=== PATIENT | female | born 1995 | race Caucasian/White ===

== ENCOUNTER 2018-09-08 23:15 | Emergency (ER) | payer OTHER ==
[~2018-09-08] VITALS: Ht 175.3 cm; Wt 57.2 kg
[2018-09-08] MEDS ORDERED: LORAZEPAM 1 MG TAB ONE (23:33)
--- NOTE | 2018-09-09 00:02 | Diagnostic Imaging Report ---
EXAMINATION: CHEST 2 VIEWS INDICATION: ^CHEST/BACK PAIN ^[id number] ^[id number] COMPARISON: None FINDINGS: PA and lateral views TUBES and LINES: None. LUNGS and pleura: Right lung is well inflated. Collapsed left lung and the large left pneumothorax. No significant pleural effusion. HEART AND MEDIASTINUM: The cardiomediastinal silhouette is unremarkable. BONES AND SOFT TISSUES: No acute osseous lesion. Soft tissues are unremarkable. UPPER ABDOMEN: No free air under the diaphragm. IMPRESSION: Large left pneumothorax with mild mediastinal shift to the right, concerning for tension pneumothorax. Collapsed left lung. Findings discussed with Dr. Shepherd at 11:57 PM, on 09/08/2018. Signed by: Dr. Edison Lozano MD on 09/08/2018 11:58 PM
[2018-09-09] MEDS ORDERED: LIDOCAINE HCL 1% LOCAL INJ 20 ML VIAL ONE ×2 (00:10→00:35)
--- NOTE | 2018-09-09 00:10 | NUR ---
CONSENT FOR NEEDLE DECOMPRESSION AND INSERTION OF CHEST TUBE REVIEWED, ALL AGREED UPON, AND SIGNED BY PATIENT.
--- NOTE | 2018-09-09 00:13 | NUR ---
DR. CANTU AT PTS BEDSIDE, NEEDLE DECOMPRESSION PERFORMED TO PTS LEFT UPPER CHEST, PT TOLERATED PROCEDURE WELL
--- NOTE | 2018-09-09 00:28 | NUR ---
DR. CANTU AT PTS BEDSIDE FOR CHEST TUBE INSERTION
[2018-09-09] MEDS ORDERED: ONDANSETRON HCL INJ 2MG/ML 2ML 2 MG/ML VIAL IV STA (00:29)
[2018-09-09] MEDS ORDERED: LORAZEPAM 1 MG TAB PO PRN (00:30)
[2018-09-09] MEDS ORDERED: MORPHINE SULFATE INJ 4 MG/ML INJ 1ML IV PRN (00:30)
--- NOTE | 2018-09-09 00:30 | NUR ---
Transfer initiated to [facility]
[2018-09-09] MEDS ORDERED: MORPHINE SULFATE 2 MG/ML SYR 1ML ONE ×2 (00:35→01:01)
--- NOTE | 2018-09-09 00:42 | Diagnostic Imaging Report ---
EXAMINATION: CHEST SINGLE (PORTABLE) INDICATION: ^post needle decompression ^[id number] ^0022 COMPARISON: 09/08/2018 FINDINGS: AP view See impression. IMPRESSION: Slightly decreased, but persistent large left pneumothorax following needle decompression. Mildly improved expansion of the left lung and decreased mediastinal shift to the right. Signed by: Dr. Edison Lozano MD on 09/09/2018 12:38 AM
--- NOTE | 2018-09-09 00:58 | NUR ---
[facility] CALLED FOR TRANSPORT
[2018-09-09] MEDS ORDERED: MORPHINE SULFATE 2 MG/ML SYR 1ML IV STA (01:03)
[2018-09-09 01:04] LABS: BASOPHILS % 0.5 % (0.0-1.0); EOSINOPHILS # (AUTO) 0.1 (0.0-0.4); HEMATOCRIT 40.4 % (34.2-44.1); HEMOGLOBIN 13.2 g/dL (12.0-16.0); LYMPHOCYTES # (AUTO) 2.4 (1.0-3.2); LYMPHOCYTES % 38.9 % (18.0-39.1); MEAN CORPUSCULAR HEMOGLOBIN 28.1 pg (28-32); MEAN CORPUSCULAR HGB CONC 32.7 g/dL (31-35); MEAN CORPUSCULAR VOLUME 86.1 fL (81-99); MONOCYTES # (AUTO) 0.5 (0.2-0.8); NEUTROPHILS # (AUTO) 3.2 (2.1-6.9); NEUTROPHILS % 51.3 % (38.7-80.0); PLATELET COUNT 303 x10e3/uL (140-360); RED BLOOD COUNT 4.69 x10e6/uL (3.6-5.1); RED CELL DISTRIBUTION WIDTH 13.4 % (11.7-14.4)
[2018-09-09 01:18] LABS: ALANINE AMINOTRANSFERASE 14 IU/L (0-55); ALBUMIN 4.4 g/dL (3.5-5.0); ALBUMIN/GLOBULIN RATIO 1.3 (0.8-2.0); ALKALINE PHOSPHATASE 58 IU/L (40-150); ANION GAP 13.6 mmol/L (8-16); BLOOD UREA NITROGEN 7 mg/dL (7-26); BUN/CREATININE RATIO 9 (6-25); CALCIUM 9.7 mg/dL (8.4-10.2); CARBON DIOXIDE 25 mmol/L (22-29); CHLORIDE 104 mmol/L (98-107); CREATININE, SERUM 0.74 mg/dL (0.57-1.11); EST GLOMERULAR FILTRATION RATE > 60 ML/MIN (60-); GLUCOSE 121 mg/dL (74-118); POTASSIUM 3.6 mmol/L (3.5-5.1); SODIUM 139 mmol/L (136-145)
--- NOTE | 2018-09-09 01:25 | Diagnostic Imaging Report ---
EXAMINATION: CHEST SINGLE (PORTABLE) INDICATION: ^post chest tube insertion COMPARISON: Same day at 0022 hours FINDINGS: AP view TUBES and LINES: Interval left chest tube placement with tip projecting left apex. LUNGS: Lungs are well inflated. Minimal midlung linear atelectasis/scarring. There is no evidence of pneumonia or pulmonary edema. PLEURA: No pleural effusion or pneumothorax. HEART AND MEDIASTINUM: The cardiomediastinal silhouette is unremarkable. BONES AND SOFT TISSUES: No acute osseous lesion. Mild scoliosis. Soft tissues are unremarkable. UPPER ABDOMEN: No free air under the diaphragm. IMPRESSION: Interval chest tube placement with reexpansion of the left lung and resolution of the previously seen large left pneumothorax. Signed by: Dr. Edison Lozano MD on 09/09/2018 1:22 AM
[2018-09-09] MEDS ORDERED: FENTANYL CITRATE/PF 100MCG/2 ML INJ ONE (01:38)
[2018-09-09] MEDS ORDERED: FENTANYL CITRATE/PF 100MCG/2 ML INJ IV ONE (01:45)
--- NOTE | 2018-09-09 01:56 | Diagnostic Imaging Report ---
EXAMINATION: CHEST SINGLE (PORTABLE) INDICATION: ^post chest tube COMPARISON: Same day x-ray FINDINGS: See impression. IMPRESSION: Interval retraction of left chest tube with tip now projecting over the left midlung. No visible pneumothorax. Signed by: Dr. Edison Lozano MD on 09/09/2018 1:53 AM
== END 2018-09-09 02:02 | disposition other institution (70) ==
LOC: ER 23:15
DX: R06.00 Dyspnea, unspecified (principal); J93.83 Other pneumothorax
CPT/HCPCS: 32551; 36415; 71045; 71046; 80053; 85025; 93005; 96374; 99284; J2001; J2270; J2405; J3010

== ENCOUNTER 2019-11-13 19:02 | Inpatient (IN) | payer OTHER ==
[~2019-11-13] VITALS: Ht 175.3 cm; Wt 58.2 kg
--- NOTE | 2019-11-13 19:09 | Emergency Department Note ---
History of Present Illnes History of Present Illness Chief Complaint: Chest Pain History of Present Illness This is a 23 year old female presents with CP since 0200. H/O tension PTX . Historian: Patient Onset (how long ago): hour(s) (18) Radiation: Reports non-radiation Severity: moderate Duration (how long): hour(s) Timing of current episode: constant Progression: worsening Chronicity: new Context: Denies recent illness, Denies recent surgery, Denies recent immobilization, Denies recent travel, Denies trauma/injury, Denies new medications, Denies hx of DVT/PE, Denies non-compliance w/ medications, Denies other Relieving factors: none Exacerbating factors: none Associated symptoms: Reports chest pain, Reports shortness of breath Treatments prior to arrival: none Past Medical/Family History Physician Review I have reviewed the patient's past medical and family history. Any updates have been documented here. Past Medical History Other Surgery: LEFT ACL REPAIR Other Last Tetanus: UTD Physical Exam Related Data Allergies: Coded Allergies: No Known Allergies (Unverified , 11/13/19) Triage Vital Signs Vital Signs Date Time Temp Pulse Resp B/P (MAP) Pulse Ox O2 Delivery O2 Flow Rate FiO2 11/13/19 19:05 98.3 79 18 136/104 99 Room Air Vital signs reviewed: Yes Physical Exam CONSTITUTIONAL Constitutional: Present well-developed, Present well-nourished HENT HENT: Present normocephalic, Present atraumatic, Present oropharynx clear/moist, Present nose normal HENT L/R: Present left ext ear normal, Present right ext ear normal EYES Eyes: Reports PERRL, Reports conjunctivae normal NECK Neck: Present ROM normal PULMONARY Pulmonary: Present effort normal, Present other (absent BS left side) CARDIOVASCULAR Cardiovascular: Present regular rhythm, Present heart sounds normal, Present capillary refill normal, Present normal rate GASTROINTESTINAL Abdominal: Present soft, Present nontender, Present bowel sounds normal GENITOURINARY Genitourinary: Present exam deferred SKIN Skin: Present warm, Present dry MUSCULOSKELETAL Musculoskeletal: Present ROM normal NEUROLOGICAL Neurological: Present alert, Present oriented x 3, Present no gross motor or sensory deficits PSYCHOLOGICAL Psychological: Present mood/affect normal, Present judgement normal Results Imaging Imaging results reviewed: Yes Impressions [place] [address] Patient Name: GORDO SERRANO MR #: [id number] : 1995 Age/Sex: 23/F Req #: [id number] Adm Physician: Ordered by: DANA MORALES DO Report #: [id number] Location: ER Room/Bed: Procedure: [id number] DX/CHEST 2 VIEWS Exam Date: Exam Time: REPORT STATUS: Signed EXAMINATION: CHEST 2 VIEWS INDICATION: ^CP COMPARISON: 09/09/2018 FINDINGS: PA and lateral views TUBES and LINES: None. LUNGS: Lungs are well inflated. There is no evidence of pneumonia or pulmonary edema. PLEURA: No pleural effusions. Large left pneumothorax with maximum air gap of 4.9 cm. HEART AND MEDIASTINUM: The cardiomediastinal silhouette is unremarkable. BONES AND SOFT TISSUES: No acute osseous lesion. Soft tissues are unremarkable. UPPER ABDOMEN: No free air under the diaphragm. IMPRESSION: Large left pneumothorax. Tension component cannot be excluded. Findings discussed with Dr. Morales at 8:30 PM, 11/13/2019. Signed by: Dr. Edison Gill MD on 11/13/2019 8:30 PM Dictated By: EDISON GILL MD 29 Transcribed By: [place] on 11/13/192029 COPY TO: DANA MORALES DO~ Procedures 12 Lead ECG Interpretation ECG Interpretation : ECG: ECG 1 Laminator Hand: Interpreted by ED physician Date: Nov 13, 2019 Time: 19:18 Prior ECG tracings: reviewed Rhythm: sinus rhythm Rate: normal BPM: 73 QRS axis: normal ST segments normal: Yes T waves normal: Yes Clinical Impression: abnormal ECG Critical Care Time Total Critical Care Time (min): 31 Critcal care necessary due to: respiratory failure Critcal care time spent by me: discussion w consultants, interpret cardiac output measures, examination of patient, obtaining hx from patient/surrogate, order/perform tx or interventions, order/review laboratory studies, order/review radiographic studies, pulse oximetry, re-evaluation of patient condition, review of old charts Comments Dr Yusuf Wells consulted at 2019. Assessment & Plan Medical Decision Making MDM Diff dx : pneumothorax, acs, pneumonia, costochondritis Reassessment Reassessment time: 22:04 Reassessment Patient hemodynamically stable with VSS. no respiratory distress. Patient 100% oxygen saturation on RA. Assessment & Plan Final Impression: (1) Pneumothorax on left Depart Disposition: ADMITTED DANA MORALES DO Nov 13, 2019 19:09
[2019-11-13 19:47] LABS: BASOPHILS % 0.5 % (0.0-1.0); EOSINOPHILS % 0.5 % (0.0-6.0); HEMOGLOBIN 13.1 g/dL (12.0-16.0); LYMPHOCYTES # (AUTO) 1.7 (1.0-3.2); LYMPHOCYTES % 30.5 % (18.0-39.1); MEAN CORPUSCULAR HEMOGLOBIN 29.6 pg (28-32); MEAN CORPUSCULAR HGB CONC 32.8 g/dL (31-35); MEAN CORPUSCULAR VOLUME 90.5 fL (81-99); MONOCYTES # (AUTO) 0.4 (0.2-0.8); MONOCYTES % 7.2 % (4.4-11.3); NEUTROPHILS # (AUTO) 3.5 (2.1-6.9); NEUTROPHILS % 60.9 % (38.7-80.0); PLATELET COUNT 284 x10e3/uL (140-360); RED BLOOD COUNT 4.42 x10e6/uL (3.6-5.1); RED CELL DISTRIBUTION WIDTH 11.8 % (11.7-14.4)
[2019-11-13 20:08] LABS: CREATINE KINASE MB 0.5 ng/mL (0-5.0)
--- NOTE | 2019-11-13 20:33 | Diagnostic Imaging Report ---
EXAMINATION: CHEST 2 VIEWS INDICATION: ^CP COMPARISON: 09/09/2018 FINDINGS: PA and lateral views TUBES and LINES: None. LUNGS: Lungs are well inflated. There is no evidence of pneumonia or pulmonary edema. PLEURA: No pleural effusions. Large left pneumothorax with maximum air gap of 4.9 cm. HEART AND MEDIASTINUM: The cardiomediastinal silhouette is unremarkable. BONES AND SOFT TISSUES: No acute osseous lesion. Soft tissues are unremarkable. UPPER ABDOMEN: No free air under the diaphragm. IMPRESSION: Large left pneumothorax. Tension component cannot be excluded. Findings discussed with Dr. Morales at 8:30 PM, 11/13/2019. Signed by: Dr. Edison Lozano MD on 11/13/2019 8:30 PM
[2019-11-13] MEDS ORDERED: LIDOCAINE HCL 1% LOCAL INJ 20 ML VIAL INJ ONE (20:45)
[2019-11-13] MEDS ORDERED: LORAZEPAM INJ 2 MG/ML VIAL IV ONE (20:45)
--- NOTE | 2019-11-13 20:47 | NUR ---
DR. Luke BALDWIN AT PT'S BEDSIDE TO ASSESS PT.
[2019-11-13 21:10] LABS: AMPHETAMINES SCREEN,URINE NEGATIVE (NEGATIVE); BENZODIAZEPINES SCREEN,URINE NEGATIVE (NEGATIVE); PHENCYCLIDINE SCREEN,URINE NEGATIVE (NEGATIVE); PREGNANCY TEST, URINE NEGATIVE (NEGATIVE)
--- NOTE | 2019-11-13 22:04 | NUR ---
PT SITTING UP IN STRETCHER TALKING TO SISTER AT THIS TIME. PT DENIES ANY COMPLAINTS. WILL CONTINUE TO MONITOR.
--- NOTE | 2019-11-13 22:13 | Diagnostic Imaging Report ---
EXAM: CT Chest WITHOUT contrast INDICATION: ^Large PTX ^[id number] ^2099 COMPARISON: Same day chest radiograph. TECHNIQUE: Chest was scanned utilizing a multidetector helical scanner from the lung apex through the level of the adrenal glands without administration of IV contrast. Absence of intravenous contrast decreases sensitivity for detection of lymphadenopathy and vascular pathology. Coronal and sagittal reformations were obtained. Routine protocol was performed. IV CONTRAST: None COMPLICATIONS: None RADIATION DOSE: Total DLP: 381.20 mGy*cm Estimated effective dose: (DLP x 0.014 x size factor) mSv CTDIvol has been reviewed. It is below the limits set by the Radiation Protocol Committee (RPC). FINDINGS: LINES/ TUBES: None. LUNGS, PLEURA, AND AIRWAYS: Evidence of left upper lobe surgery with suture line in place. Partially collapsed left lung along with large left pneumothorax. Airways are normal. No pleural effusion. Mild right upper lobe subpleural bullous changes. Otherwise, right lung is unremarkable. HEART AND MEDIASTINUM: The thyroid gland is normal. No mediastinal, hilar or axillary lymphadenopathy. The heart is normal in size.. There is no pericardial effusion. UPPER ABDOMEN: 4 mm right renal superior pole calculus versus milk of calcium. BONES: The visualized bony thorax is within normal limits. SOFT TISSUES: Unremarkable. IMPRESSION: Persistent large left pneumothorax. Tension component is suspected. Evidence of prior left upper lobe surgery. Signed by: Dr. Edison Lozano MD on 11/13/2019 10:09 PM
--- NOTE | 2019-11-13 22:20 | NUR ---
INFORMED CONSENT OBTAINED. DR. Luke BALDWIN AT BEDSIDE TO DISCUSS PROCEDURE. PT HAS NO FURTHER QUESTIONS AT THIS TIME.
--- NOTE | 2019-11-13 22:26 | Consultation ---
DATE OF CONSULTATION: Pulmonary Critical Care Consultation CHIEF COMPLAINT: Chest discomfort and recurrent pneumothorax. HISTORY OF PRESENT ILLNESS: The patient is a 23-year-old woman. Approximately a year ago, she had a spontaneous pneumothorax on the left side. She came to the ER and had a chest tube, but the lung did not re-expand. She was transferred to [facility] and had a 2nd chest tube followed by a video-assisted thoracoscopy. She remained in the hospital for about 2 weeks. She subsequently went home and had no further problems until yesterday in the in store representative hours. Around 2:00 a.m., last night, she developed some pain in her chest and back that was worse with inspiration as well as some tachypnea. She did not complain of any cough. She has no fevers. PAST SURGICAL HISTORY: 1. Status post video-assisted thoracoscopy as noted above. 2. Status post removal of the cyst in her neck. PAST MEDICAL HISTORY: 1. Scoliosis, mild. 2. Spontaneous pneumothorax as noted above. SOCIAL HISTORY: The patient is not a smoker. She does not use any illicit drugs. She is not a drinker. FAMILY HISTORY: Noncontributory. REVIEW OF SYSTEMS: The patient has no fever. She has no headache. She has no neck pain. She is complaining of pain in her chest with inspiration as well as some pain in her back. She has no abdominal pain. There is no nausea or vomiting. She has no leg edema. PHYSICAL EXAMINATION: VITAL SIGNS: The patient is afebrile. The blood pressure is 132/92 and pulse is 80. The respiratory rate is 20. Saturation is 99% on room air. HEENT: Shows no facial swelling or erythema. LYMPHATIC: Shows no submandibular, cervical, or supraclavicular adenopathy. BACK: Does show some mild scoliosis. There are scars from a prior video-assisted thoracoscopy on the left side. CARDIAC: Reveals a regular rate and rhythm with normal S1, S2. LUNGS: Auscultation of lungs reveals decreased breath sounds on the left side. ABDOMEN: Soft and nontender. There is no rebound or guarding. There is no leg edema or calf tenderness. There is no cyanosis or clubbing. SKIN: Shows no rashes. NEUROLOGICAL: Shows no focal abnormalities. LABORATORY DATA: White blood cell count is 5.68, the hemoglobin is 15.1, and the platelet count is 284. RADIOGRAPHIC DATA: Chest x-ray shows a left pneumothorax that is most prominent at the base and at the apex. There is some mild scoliosis. IMPRESSION: 1. Recurrent left pneumothorax following a video-assisted thoracoscopy. 2. Mild scoliosis. PLAN: 1. CT scan of chest to determine if there are any loculations and a pneumothorax. 2. Depending on the CT scan results, the patient may need pigtail catheters placed. Alternatively, she may require video-assisted thoracoscopy. Yusuf Keller MD [facility] /[id number]
--- NOTE | 2019-11-13 22:38 | NUR ---
DR. Luke BALDWIN AT PT'S BEDSIDE FOR CHEST TUBE INSERTION. CHEST TUBE INSERTED IN LT UPPER CHEST. PT TOLERATED PROCEDURE WELL. NAD NOTED AT THIS TIME. WILL CONTINUE TO MONITOR.
--- NOTE | 2019-11-13 22:50 | NUR ---
2230 - TIME OUT PERFORMED PRIOR TO START OF PROCEDURE. EDINSON BECKFORD, RN AND THIS RN AT BEDSIDE. 2235 - START TIME FOR CHEST TUBE INSERTION. 2249 - STOP TIME FOR PROCEDURE. PT TOLERATED WELL.
--- NOTE | 2019-11-13 22:54 | NUR ---
TOOL SHARPENER AT BEDSIDE FOR STAT POST CHEST TUBE INSERTION.
[2019-11-13] MEDS ORDERED: SODIUM CHLORIDE 0.9% 1000ML 1,000 ML IV SCH (23:00)
[2019-11-13] MEDS ORDERED: ZOLPIDEM TARTRATE 5 MG TAB PO PRN (23:15)
--- NOTE | 2019-11-13 23:25 | Diagnostic Imaging Report ---
EXAMINATION: CHEST SINGLE (PORTABLE) INDICATION: ^CHEST TUBE INSERTION ^[id number] ^9572 COMPARISON: Same day chest CT and x-ray FINDINGS: AP view TUBES and LINES: Interval placement of left pleural tube. LUNGS: Lungs are well inflated. There is no evidence of pneumonia or pulmonary edema. PLEURA: No pleural effusion. Minimal left apical pneumothorax with air gap of approximately 5 mm. HEART AND MEDIASTINUM: The cardiomediastinal silhouette is unremarkable. BONES AND SOFT TISSUES: No acute osseous lesion. Soft tissues are unremarkable. UPPER ABDOMEN: No free air under the diaphragm. IMPRESSION: Reexpansion of the left lung following left chest tube placement. Minimal residual left apical pneumothorax. Signed by: Dr. Edison Lozano MD on 11/13/2019 11:21 PM
[2019-11-14] VITALS (8 sets, daily range): BP systolic 111–123; BP diastolic 76–94
--- NOTE | 2019-11-14 00:30 | NUR ---
PT ARRIVED BY STRETCHER TO ROOM 113. PT IS AAOX3, RR EVEN AND NON-LABORED, ON ROOM AIR. CHEST TUBE TO (L) LATERAL CHEST CONNECTED TO SUCTION 20. ORIENTED PT TO HOSPITAL ROOM, HOSPITAL POLICY, CALL LIGHT, PHONE, LIGHTS AND BED CONTROLS. LEFT PT LAYING SEMI FOWLERS IN BED, BED IN LOW LOCKED POSITION, SIDE RAILS UPX2, CALL LIGHT AND PHONE WITHIN REACH.
--- NOTE | 2019-11-14 02:32 | Operative Report ---
DATE OF PROCEDURE: SURGEON: Yusuf Keller MD PROCEDURE: Chest tube placement. PREOPERATIVE DIAGNOSIS: Left pneumothorax. POSTOPERATIVE DIAGNOSIS: Left pneumothorax. CONSENT: Consent was obtained from the patient. MEDICATIONS: 1% lidocaine for local anesthesia. DESCRIPTION OF PROCEDURE: The patient was placed in a supine position. The mid axillary line was prepped sterilely with chlorhexidine at the 6th intercostal space. Sterile gowns, sterile drapes, mask, and sterile cloths were used. 1% lidocaine was used to anesthetize the area over the 6th intercostal space. A 0.5 cm incision was made with a #11 blade. Lidocaine was then used to anesthetize the subcutaneous tissue as well as the area superior to the rib. An 18-gauge needle was used to enter the pleural space. An 18-gauge needle was advanced through the parietal pleura into the pleural space. A 20-Sinhala catheter was then advanced over the needle by the Seldinger technique. The tube was connected to a Pleur-evac with -20 mL of suction. There was notable air leak and respiratory variation. COMPLICATIONS: None. ESTIMATED BLOOD LOSS: None. Yusuf Keller MD [facility] /[id number]
[2019-11-14] MEDS ORDERED: MULTIVITAMINS1 EAC7 PO (04:15)
[2019-11-14] MEDS ORDERED: LARIN 24 FE 11 EACH PO (04:15)
[2019-11-14 06:58] LABS: BASOPHILS % 0.7 % (0.0-1.0); EOSINOPHILS # (AUTO) 0.1 (0.0-0.4); EOSINOPHILS % 1.3 % (0.0-6.0); HEMATOCRIT 37.8 % (34.2-44.1); HEMOGLOBIN 12.5 g/dL (12.0-16.0); LYMPHOCYTES # (AUTO) 1.7 (1.0-3.2); MEAN CORPUSCULAR HEMOGLOBIN 29.5 pg (28-32); MEAN CORPUSCULAR HGB CONC 33.1 g/dL (31-35); MEAN CORPUSCULAR VOLUME 89.2 fL (81-99); MONOCYTES # (AUTO) 0.4 (0.2-0.8); MONOCYTES % 9.3 % (4.4-11.3); NEUTROPHILS # (AUTO) 2.4 (2.1-6.9); NEUTROPHILS % 52.5 % (38.7-80.0); PLATELET COUNT 236 x10e3/uL (140-360); RED BLOOD COUNT 4.24 x10e6/uL (3.6-5.1); RED CELL DISTRIBUTION WIDTH 11.9 % (11.7-14.4)
[2019-11-14 07:02] LABS: ALANINE AMINOTRANSFERASE 10 IU/L (0-55); ALBUMIN 3.9 g/dL (3.5-5.0); ALBUMIN/GLOBULIN RATIO 1.8 (0.8-2.0); ALKALINE PHOSPHATASE 35 IU/L (40-150); ANION GAP 10.1 mmol/L (8-16); BLOOD UREA NITROGEN 9 mg/dL (7-26); BUN/CREATININE RATIO 12 (6-25); CALCIUM 8.7 mg/dL (8.4-10.2); CARBON DIOXIDE 24 mmol/L (22-29); CHLORIDE 110 mmol/L (98-107); CREATININE, SERUM 0.75 mg/dL (0.57-1.11); EST GLOMERULAR FILTRATION RATE > 60 ML/MIN (60-); GLUCOSE 91 mg/dL (74-118); POTASSIUM 4.1 mmol/L (3.5-5.1); SODIUM 140 mmol/L (136-145)
[2019-11-14] MEDS: MORPHINE SULFATE INJ 4 MG/ML INJ 1ML IV PRN (07:04)
[2019-11-14] MEDS: ONDANSETRON HCL INJ 2MG/ML 2ML 2 MG/ML VIAL IV PRN ×2 (07:05→20:21)
--- NOTE | 2019-11-14 07:41 | Diagnostic Imaging Report ---
EXAMINATION: CHEST 2 VIEWS INDICATION: Pneumothorax. COMPARISON: Chest CT and chest radiograph 11-13-2019. FINDINGS: AP view TUBES and LINES: Interval placement of left pleural tube. LUNGS: Lungs are well inflated. There is no evidence of pneumonia or pulmonary edema. PLEURA: No pleural effusion. Unchanged trace left apical pneumothorax. HEART AND MEDIASTINUM: The cardiomediastinal silhouette is unremarkable. BONES AND SOFT TISSUES: No acute osseous abnormality. Trace left chest wall subcutaneous emphysema. UPPER ABDOMEN: No free air under the diaphragm. IMPRESSION: Unchanged trace left apical pneumothorax with left-sided chest tube in place. Signed by: Dr. Cabrera Mackay MD on 11/14/2019 7:38 AM
--- NOTE | 2019-11-14 09:10 | NUR ---
chest tube placed to water seal as ordered, xray ordered for 1500 today, will continue ot monitor
[2019-11-14] MEDS: HYDROCODONE/APAP 5MG-325MG TAB PO PRN ×2 (12:41→19:15)
--- NOTE | 2019-11-14 12:50 | NUR ---
pt complain of pain on L back, neck, and chest area, notified Dr. Keller orders for xray.
--- NOTE | 2019-11-14 13:30 | NUR ---
down to xray
--- NOTE | 2019-11-14 13:40 | NUR ---
back to rm, voices no co, will continue ot monitor
--- NOTE | 2019-11-14 14:00 | NUR ---
spoke with radiologist Dr. Mackay re: xray results will notify Dr. Keller.
--- NOTE | 2019-11-14 14:02 | Diagnostic Imaging Report ---
EXAMINATION: CHEST 2 VIEWS INDICATION: Pneumothorax. COMPARISON: Chest radiograph 11-14-2019. FINDINGS: AP view TUBES and LINES: Left-sided chest tube in unchanged position. LUNGS: Lungs are well inflated. There is no evidence of pneumonia or pulmonary edema. PLEURA: No pleural effusion. Interval increase in size of small left sided pneumothorax, measuring up to 3 cm. HEART AND MEDIASTINUM: The cardiomediastinal silhouette is unremarkable. BONES AND SOFT TISSUES: No acute osseous abnormality. UPPER ABDOMEN: No free air under the diaphragm. IMPRESSION: Interval increase in size of small left sided pneumothorax, measuring up to 3 cm. The above findings were discussed with NIMA Bailey who indicated the communication was understood on 11/14/2019 at 158PM. Signed by: Dr. Cabrera Mackay MD on 11/14/2019 1:59 PM
--- NOTE | 2019-11-14 14:15 | NUR ---
spoke with Dr. Keller, pt reconnected to wall suction.
--- NOTE | 2019-11-14 15:44 | Progress Note ---
DATE: SUBJECTIVE: The patient's lung was re-expanded this morning on chest x-ray. Her chest tube was placed to water-seal. Several hours later, she developed some pain in her back. Repeat chest x-ray showed recurrent collapse of the left lung and chest tube was hooked up to suction again. PHYSICAL EXAMINATION: VITAL SIGNS: The patient is afebrile. The blood pressure is 113/76, saturation is 100%. The pulse is 74. Respiratory rate is 18. HEENT: Shows no facial swelling or erythema. LYMPHATIC: Shows no submandibular, cervical or supraclavicular adenopathy. CARDIAC: Reveals regular rate and rhythm with normal S1, S2. LUNGS: Auscultation of lungs reveals rhonchorous breath sounds bilaterally. There is no wheezing. ABDOMEN: Soft, nontender. There is no rebound or guarding. EXTREMITIES: Shows no leg edema or calf tenderness. There is no cyanosis or clubbing. SKIN: Shows no rashes. NEUROLOGICAL: Shows no focal abnormalities. LABORATORY DATA: CBC is within normal limits. CMP is within normal limits. IMPRESSION: 1. Recurrent spontaneous pneumothorax. 2. Small apical bleb in the right lung on CT scan. 3. Mild scoliosis. PLAN: 1. Continue chest tube to suction. 2. Repeat chest x-ray later this evening and again tomorrow. 3. Consult Thoracic Surgery. 4. Pain control as needed. Yusuf Keller MD [facility] /[id number]
--- OUTSIDE RECORDS SUMMARY | 2019-11-14 16:45 | XMS REPORT | Continuity of Care Document ---
Author Author [facility] t Organization [facility] Address [address] [place] [address] Phone Unavailable Care Team Providers Care Nut Cracker Name Role Phone AR GALLEGO PCP Gabby IVEY Attphys Unavailable George Shepard MD Attphys FRANCISCA ESCOBAR Attphys Unavailable LEANN, S AMBICA Attphys Unavailable Gabby IVEY Admphys Unavailable FRANCISCA ESCOBAR Admphys Unavailable Payers Payer Name Policy Type Policy Number Effective Date Expiration Date Carter Zepeda [facility] [id number] 2010 00:00:00 [facility] Problems Condition Name Condition Details Condition Category Status Onset Date Resolution Date Last Treatment Date Treating Clinician Comments Source 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 Active 2018-09-09 00:00:00 [facility] Spontaneous pneumothorax s/p L VATS FESTUS wedge resection, mechanical pleurodesis 09/14/2018 (Devyn) Spontaneous pneumothorax s/p L VATS FESTUS wedge resection, mechanical pleurodesis 09/14/2018 (Devyn) Disease Active [facility] Allergies, Adverse Reactions, Alerts Allergy Name Allergy Type Status Severity Reaction(s) Onset Date Inacti ve Date Treating Clinician Comments Source Sulfamethoxazole-Trimethoprim Propensity to adverse reactions Active Swelling 2018-02-03 00:00:00 [facility] Social History Social Habit Start Date Stop Date Quantity Comments Source History SDOH Alcohol Binge [facility] Sex Assigned At [facility] History SDOH Alcohol Frequency 2018-09-09 00:00:00 2018-09-09 00:00:0 0 3 [facility] History SDOH Alcohol Std Drinks 2018-09-09 00:00:00 2018-09-09 00:00: 00 1 [facility] Smoking Status Start Date Stop Date Source Never smoker [facility] Medications Ordered Medication Name Filled Medication Name Start Date Stop Da te Current Medication? Ordering Clinician Indication Dosage Frequency Signature (SIG) Comments Components Source gabapentin (NEURONTIN) 100 MG capsule 2018-09-17 00:00 :00 2018-12-16 23:59:00 No 100mg [id number] Take 1 capsule (100 mg total) by mouth 3 (three) times daily for 90 days. [facility] Procedures Procedure Date / Time Performed Performing Clinician [facility] e X-ray of chest, two views 2018-09-08 00:00:00 JAYE NORIEGA [facility] Encounters Start Date/Time End Date/Time Encounter Type Admission Type Attendi [facility] Care Department Encounter ID Source 2018-09-29 09:34:10 2018-09-29 09:49:10 Office Visit George Yañez [facility] [id number] 2018-09-08 23:15:00 2018-09-09 02:02:00 Departed Emergency Room 1 LEANNJAYE VENEGAS [facility] [id number] [facility] Results Test Description Test Time Test Comments Results Result Comments Source CHEST 2 VIEWS 2019-11-14 13:54:00 [address], [place], [place] [address] Patient Name: GORDO SERRANO MR #: [id number] : 1995 Age/Sex: 23/F Req #: [id number] Adm Physician: CARLENE IVEY MD Ordered by: ELIJAH BALDWIN MD Report #: [id number] Location: MED/SURG Room/Bed: [facility] Procedure: [id number] DX/CHEST 2 VIEWS Exam Date: Exam Time: REPORT STATUS: Signed EXAMINATION: CHEST 2 VIEWS INDICATION: Pneumothorax. COMPARISON: Chest radiograph 11-14-2019. FINDINGS: AP view TUBES and LINES: Left-sided chest tube in unchanged position. LUNGS: Lungs are well inflated. There is no evidence of pneumonia or pulmonary edema. PLEURA: No pleural effusion. Interval increase in size of small left sided pneumothorax, measuring up to 3 cm. HEART AND MEDIASTINUM: The cardiomediastinal silhouette is unremarkable. BONES AND SOFT TISSUES: No acute osseous abnormality. UPPER ABDOMEN: No free air under the diaphragm. IMPRESSION: Interval increase in size of small left sided pneumothorax, measuring up to 3 cm. The above findings were discussed with NIMA Bailey who indicated the communication was understood on 11/14/2019 at 158PM. Signed by: Dr. Roge Luna MD on 11/14/2019 1:59 PM Dictated By: ROGE LUNA MD [id number] Transcribed By: ALEXANDRIA on 11/14/19 8130 COPY TO: ELIJAH BALDWIN MD CHEST 2 VIEWS 2019-11-14 07:36:00 [place] [address] Patient Name: GORDO SERRANO MR #: [id number] : 1995 Age/Sex: 23/F Req #: [id number] Adm Physician: CARLENE IVEY MD Ordered by: ELIJAH BALDWIN MD Report #: [id number] Location: MED/SURG Room/Bed: [facility] Procedure: [id number] DX/CHEST 2 VIEWS Exam Date: 11/14/19 Exam Time: 0645 REPORT STATUS: Signed EXAMINATION: CHEST 2 VIEWS INDICATION: Pneumothorax. COMPARISON: Chest CT and chest radiograph 11-13-2019. FINDINGS: AP view TUBES and LINES: Interval placement of left pleural tube. LUNGS: Lungs are well inflated. There is no evidence of pneumonia or pulmonary edema. PLEURA: No pleural effusion. Unchanged trace left apical pneumothorax. HEART AND MEDIASTINUM: The cardiomediastinal silhouette is unremarkable. BONES AND SOFT TISSUES: No acute osseous abnormality. Trace left chest wall subcutaneous emphysema. UPPER ABDOMEN: No free air under the diaphragm. IMPRESSION: Unchanged trace left apical pneumothorax with left-sided chest tube in place. Signed by: Dr. Roge Luna MD on 11/14/2019 7:38 AM Dictated By: ROGE LUNA MD 7 Transcribed By: ALEXANDRIA on 11/14/19737 COPY TO: ELIJAH BALDWIN MD CHEST SINGLE (PORTABLE) 2019-11-13 23:16:00 [place] [address] Patient Name: GORDO SERRANO MR #: [id number] : 1995 Age/Sex: 23/F Req #: [id number] Adm Physician: Ordered by: ELIJAH BALDWIN MD Report #: [id number] Location: ER Room/Bed: Procedure: [id number] DX/CHEST SINGLE (PORTABLE) Exam Date: 11/13/19 Exam Time: 2254 REPORT STATUS: Signed EXAMINATION: CHEST SINGLE (PORTABLE) INDICATION: CHEST TUBE INSERTION [id number] COMPARISON: Same day chest CT and x-ray FINDINGS: AP view TUBES and LINES: Interval placement of left pleural tube. LUNGS: Lungs are well inflated. There is no evidence of pneumonia or pulmonary edema. PLEURA: No pleural effusion. Minimal left apical pneumothorax with air gap of approximately 5 mm. HEART AND MEDIASTINUM: The cardiomediastinal silhouette is unremarkable. BONES AND SOFT TISSUES: No acute osseous lesion. Soft tissues are unremarkable. UPPER ABDOMEN: No free air under the diaphragm. IMPRESSION: Reexpansion of the left lung following left chest tube placement. Minimal residual left apical pneumothorax. Signed by: Dr. Edison Gill MD on 11/13/2019 11:21 PM Dictated By: EDISON GILL MD 20 Transcribed By: ALEXANDRIA on 11/13/192320 COPY TO: ELIJAH BALDWIN MD CT CHEST WO 2019-11-13 21:45:00 [place] [address] Patient Name: GORDO SERRANO MR #: [id number] : 1995 Age/Sex: 23/F Req #: [id number] Adm Physician: Ordered by: DANA GAMBOA DO Report #: [id number] Location: ER Room/Bed: Procedure: [id number] CT/CT CHEST WO Exam Date: 11/13/19 Exam Time: 2099 REPORT STATUS: Signed EXAM: CT Chest WITHOUT contrast INDICATION: Large PTX [id number] COMPARISON: Same day chest radiograph. TECHNIQUE: Chest was scanned utilizing a multidetector helical scanner from the lung apex through the level of the adrenal glands without administration of IV contrast. Absence of intravenous contrast decreases sensitivity for detection of lymphadenopathy and vascular pathology. Coronal and sagittal reformations were obtained. Routine protocol was performed. IV CONTRAST: None COMPLICATIONS: None RADIATION DOSE: Total DLP: 381.20 mGy*cm Estimated effective dose: (DLP x 0.014 x size factor) mSv CTDIvol has been reviewed. It is below the limits set by the Radiation Protocol Committee (RPC). FINDINGS: LINES/ TUBES: None. LUNGS, PLEURA, AND AIRWAYS: Evidence of left upper lobe surgery with suture line in place. Partially collapsed left lung along with large left pneumothorax. Airways are normal. No pleural effusion. Mild right upper lobe subpleural bullous changes. Otherwise, right lung is unremarkable. HEART AND MEDIASTINUM: The thyroid gland is normal. No mediastinal, hilar or axillary lymphadenopathy. The heart is normal in size.. There is no pericardial effusion. UPPER ABDOMEN: 4 mm right renal superior pole calculus versus milk of calcium. BONES: The visualized bony thorax is within normal limits. SOFT TISSUES: Unremarkable. IMPRESSION: Persistent large left pneumothorax. Tension component is suspected. Evidence of prior left upper lobe surgery. Signed by: Dr. Edison Gill MD on 11/13/2019 10:09 PM Dictated By: EDISON GILL MD 08 Transcribed By: ALEXANDRIA on 11/13/192208 COPY TO: DANA GAMBOA DO CHEST 2 VIEWS 2019-11-13 20:25:00 [place] [address] Patient Name: OGRDO SERRANO MR #: [id number] : 1995 Age/Sex: 23/F Req #: [id number] Adm Physician: Ordered by: DNAA GAMBOA DO Report #: [id number] Location: ER Room/Bed: Procedure: [id number] DX/CHEST 2 VIEWS Exam Date: Exam Time: REPORT STATUS: Signed EXAMINATION: CHEST 2 VIEWS INDICATION: CP COMPARISON: 09/09/2018 FINDINGS: PA and lateral views TUBES and LINES: None. LUNGS: Lungs are well inflated. There is no evidence of pneumonia or pulmonary edema. PLEURA: No pleural effusions. Large left pneumothorax with maximum air gap of 4.9 cm. HEART AND MEDIASTINUM: The cardiomediastinal silhouette is unremarkable. BONES AND SOFT TISSUES: No acute osseous lesion. Soft tissues are unremarkable. UPPER ABDOMEN: No free air under the diaphragm. IMPRESSION: Large left pneumothorax. Tension component cannot be excluded. Findings discussed with Dr. Gamboa at 8:30 PM, 11/13/2019. Signed by: Dr. Edison Gill MD on 11/13/2019 8:30 PM Dictated By: EDISON GILL MD 29 Transcribed By: ALEXANDRIA on 11/13/192029 COPY TO: DANA GAMBOA DO TISSUE EXAM 2018-09-17 14:42:00 Surgical Pat hology Report Case: [id number] Authorizing Provider: George Shepard Collected: 09/14/2018 1601 Nelson Mccormack MD Ordering Location: [facility] Received: 09/14/2018 1636 PERIOPERATIVE SERVICES Pathologist: Michael Garcia MD Specimen: Lung, Left Upper Lobe, LEFT UPPER LOBE WEDGE RESECTION A. LUNG, UPPER LOBE, WEDGE RESECTION: - EMPHYSEMA AND BLEBS - NEGATIVE FOR MALIGNANCY Signing Pathologist Direct Phone Line: [phone] signed by Michael Garcia MD on 09/17/2018 at 2:42 [id number] and postop diagnosis: left pneumothoraxLeft upper lobe wedge resectionReceived fresh labeled with the patient's name, accession number and "left upper lobe wedge" is a 15 gm, 11 x 2.5 x 2.5 cm lung wedge. The pleura is lavender-pink to aguilar, smooth and mottled. There are multiple blebs ranging 0.1- 0.5 cm. The closest bleb is 1 cm from the stapled margin. The stapled margin is inked blue and the specimen is serially sectioned to reveal red-pink, mottled, spongy parenchyma with no gross lesions. Folder Machine Operator sections are submitted. Section code: A1, in home sales representative of bleb; A2-A3, in home sales representative of parenchyma to margin. CG/pl Performed. RAD, CHEST, 1 VIEW, NON DEPT 2018-09-17 09:44:00 Reason for exam:->post opIs the patient ?->NoShould this be performed at the bedside?->Yes FINAL REPORT RAD, CHEST, 1 VIEW, NON DEPT INDICATION: post op COMPARISON: Prior day's exam FINDINGS: Portable frontal view of the chest. IMPRESSION: Support Lines: None. Lungs and pleura: Basilar subsegmental atelectasis with trace left effusion. Decreasing volume of left apical pneumothorax.Heart and mediastinum: Stable contours. Additional findings: None. Signed: JR Baires [facility] Verified Date/Time: 09/17/2018 09:44:16 Reading Location: [facility] Radiology Reading Room , CHEST, 1 VIEW, NON DEPT 2018-09-16 16:21:00 Reason for exam:->chest tube removalShould this be performed at the bedside?->Yes FINAL REPORT RAD, CHEST, 1 VIEW, NON DEPT CLINICAL INDICATION: chest tube removal COMPARISON: Radiograph three hours prior on 09/16/2018 TECHNIQUE: AP view of the chest FINDINGS: Interval removal of the left-sided chest tube. There is a small left apical pneumothorax. No focal consolidation or pleural effusion. Cardiomediastinal silhouette, vicki, and pulmonary vasculature are unchanged. IMPRESSION:Small left apical pneumothorax following removal of left chest tube. Signed: Maribeth Crooks Verified Date/Time: 09/16/2018 16:21:28 Reading Location: [address] Consult Reading Room , CHEST, 1 VIEW, NON DEPT 2018-09-16 11:21:00 Reason for exam:->ct to water sealShould this be performed at the bedside?->Yes FINAL REPORT RAD, CHEST, 1 VIEW, NON DEPT CLINICAL INDICATION: ct to water seal COMPARISON: Radiograph 09/16/2018 at 7:31 TECHNIQUE: AP view of the chest FINDINGS: Unchanged left apical chest tube. Surgical sutures again noted at the left lung apex. The lungs are clear. No pleural effusion or pneumothorax. Cardiomediastinal silhouette, vicki, and pulmonary vasculature are normal. No acute osseous abnormality. IMPRESSION:No significant interval change. Signed: Maribeth Crooks Verified Date/Time: 09/16/2018 11:21:25 Reading Location: [facility] Radiology Reading Room , CHEST, 1 VIEW, NON DEPT 2018-09-16 08:31:00 Reason for exam:->post opIs the patient ?->NoShould this be performed at the bedside?->Yes FINAL REPORT RAD, CHEST, 1 VIEW, NON DEPT CLINICAL INDICATION: post op COMPARISON: Radiograph 09/15/2018 TECHNIQUE: AP view of the chest FINDINGS: Unchanged left apical chest tube. The lungs are clear. No pleural effusion or pneumothorax. Cardiomediastinal silhouette, vicki, and pulmonary vasculature are normal. No acute osseous abnormality. IMPRESSION:No significant interval change. Signed: Maribeth Crooks Verified Date/Time: 09/16/2018 08:31:00 Reading Location: [facility] Radiology Reading Room GLOBIN AND HEMATOCRIT 2018-09-16 05:56:00 Test Item HEMOGLOBIN (BEAKER) (test code = 410) 10.9 GM/DL 11.2-15.7 L HEMATOCRIT (BEAKER) (test code = 411) 35.2 % 34.1-44.9 RAD, CHEST, 1 VIEW, NON [id number] 10:21:00Reason for exam:->post opIs the patient ?->NoShould this be performed at the bedside?->YesFINAL REPORT TECHNIQUE: Frontal chest radiograph dated 09/15/2018. CLINICAL HISTORY: Post op COMPARISON STUDY: Chest radiograph dated 09/14/2018 IMPRESSION: Left-sided chest tube is stable. Lungs are clear. No pleural effusion or pneumothorax. Cardiomediastinal silhouette is normal in size. No pu lmonary edema. No fracture. Signed: Herber Huber Verified Date/Ti me: 09/15/2018 10:21:05 [facility] Electronical ly signed by: HERBER HUBER MD on 09/15/2018 10:21 AM RAD, CHEST, 1 VIEW, NON [id number] 18:25:00Reason for exam:->post opIs the patient ?->NoShould this be performed at the bedside?->YesFINAL REPORT Chest, one view. HISTORY: post op COMPARISON: Radiograph from earlier today IMPRESSION: Two left chest tubes have been removed, and an additional left chest tube has been placed with its tip located in the apex. There has been an interval resection of the left apical lung. No definite residual left apical pneumothorax. However, evaluation is difficult given the positioning of the left chest tube. Moderate rightward convex curvature of the thoracic spine. The cardiac silhouette is normal. No pleural effusion. The lungs are clear. The stomach is distended with gas. Signed: Kwabena Conde MDReport Veri fied Date/Time: 09/14/2018 18:25:24 Reading Location: [facility] B1 C013W Consult Read ing Room , CHEST, 1 VIEW, NON [id number] 10:09:00Reason for exam:->follow up pneumothoraxShould this be performed at the bedside?->YesFINAL REPORT RAD, CHEST, 1 VIEW, NON DEPT CLINICAL INDICATION: follow up pneumothorax COMPARISON: Radiograph 09/13/2018 TECHNIQUE: AP view of the chest FINDINGS: Two left-sided chest tubes are unchanged. There is a persistent left apical pneumothorax, unchanged from prior exam. No new focal consolidation or pleural effusion. Cardiomediastinal silhouette, vicki, and pulmonary vasculature are unchanged. IMPRESSION:No significant interval change in left apical pneumothorax. Signed: Maribeth Crooks Verified Date/Time: 09/14/2018 10:09:47 Reading Location: [facility] Radiology Reading Room PHORUS 2018-09-14 07:09:00* Test Item Value Reference Range Interpretation Comments PHOSPHORUS (BEAKER) (test code = 604) 3.8 mg/dL 2.3-4.7 [id number] 07:09:00* Test Item Value Reference Range Interpretation Comments MAGNESIUM (BEAKER) (test code = 627) 1.8 mg/dL 1.6-2.6 BASIC METABOLIC [id number] 07:09:00* Test Item Value Reference Range Interpretation Comments SODIUM (BEAKER) (test code = 381) 139 meq/L 136-145 POTASSIUM (BEAKER) (test code = 379) 3.7 meq/L 3.5-5.1 CHLORIDE (BEAKER) (test code = 382) 107 meq/L 98-107 CO2 (BEAKER) (test code = 355) 26 meq/L 22-29 BLOOD UREA NITROGEN (BEAKER) (test code = 354) 9 mg/dL 7-21 CREATININE (BEAKER) (test code = 358) 0.61 mg/dL 0.57-1.25 GLUCOSE RANDOM (BEAKER) (test code = 652) 96 mg/dL 70-105 CALCIUM (BEAKER) (test code = 697) 8.8 mg/dL 8.4-10.2 EGFR (BEAKER) (test code = 1092) 124 mL/min/1.73 sq m ESTIMATED GFR IS NOT ACCURATE CREATININE CLEARANCE IN PREDICTING GLOMERULAR FILTRATION RATE. ESTIMATED GFR IS NOT APPLICABLE FOR DIALYSIS PATIENTS. CBC W/PLT COUNT & AUTO [id number] 06:47:00* Test Item Value Reference Range Interpretation Comments WHITE BLOOD CELL COUNT (BEAKER) (test code = 775) 5.2 K/ L 3.5- 10.5 RED BLOOD CELL COUNT (BEAKER) (test code = 761) 4.19 M/ L 3.93-5 .22 HEMOGLOBIN (BEAKER) (test code = 410) 11.7 GM/DL 11.2-15.7 HEMATOCRIT (BEAKER) (test code = 411) 36.4 % 34.1-44.9 MEAN CORPUSCULAR VOLUME (BEAKER) (test code = 753) 86.9 fL 79. 4-94.8 MEAN CORPUSCULAR HEMOGLOBIN (BEAKER) (test code = 751) 27.9 pg 25.6-32.2 MEAN CORPUSCULAR HEMOGLOBIN CONC (BEAKER) (test code = 752) 32.1 GM/DL 32.2-35.5 L RED CELL DISTRIBUTION WIDTH (BEAKER) (test code = 412) 13.0 % 11.7-14.4 PLATELET COUNT (BEAKER) (test code = 756) 240 K/CU MM 150-450 MEAN PLATELET VOLUME (BEAKER) (test code = 754) 9.3 fL 9.4-12 .3 L NUCLEATED RED BLOOD CELLS (BEAKER) (test code = 413) 0 /100 WBC 0 -0 NEUTROPHILS RELATIVE PERCENT (BEAKER) (test code = 429) 50 % LYMPHOCYTES RELATIVE PERCENT (BEAKER) (test code = 430) 34 % MONOCYTES RELATIVE PERCENT (BEAKER) (test code = 431) 9 % EOSINOPHILS RELATIVE PERCENT (BEAKER) (test code = 432) 7 % BASOPHILS RELATIVE PERCENT (BEAKER) (test code = 437) 1 % NEUTROPHILS ABSOLUTE COUNT (BEAKER) (test code = 670) 2.62 K/ L 1.56-6.13 LYMPHOCYTES ABSOLUTE COUNT (BEAKER) (test code = 414) 1.76 K/ L 1.18-3.74 MONOCYTES ABSOLUTE COUNT (BEAKER) (test code = 415) 0.47 K/ L 0. 24-0.36 H EOSINOPHILS ABSOLUTE COUNT (BEAKER) (test code = 416) 0.34 K/ L 0.04-0.36 BASOPHILS ABSOLUTE COUNT (BEAKER) (test code = 417) 0.03 K/ L 0. 01-0.08 IMMATURE GRANULOCYTES-RELATIVE PERCENT (BEAKER) (test code = 2801) 0 % 0-1 [id number] 06:35:00* Test Item Value Reference Range Interpretation Comments PROTIME (BEAKER) (test code = 759) 14.1 seconds 11.9-14.2 INR (BEAKER) (test code = 370) 1.2 <=5.9 PARTIAL THROMBOPLASTIN TIME (BEAKER) (test code = 760) 28.3 seconds 22.5-36.0 Effective 07/15/2018: PT Reference Range ChangeNew: 11.9-14.2 Previous: 11.7-14. 7RECOMMENDED COUMADIN/WARFARIN INR THERAPY RANGESSTANDARD DOSE: 2.0-3.0 Include s: PROPHYLAXIS for venous thrombosis, systemic embolization; TREATMENT for venou s thrombosis and/or pulmonary embolus.HIGH RISK: Target INR is 2.5-3.5 for patie nts wiht mechanical heart valves.[id number] 07:45:00* Test Item Value Reference Range Interpretation Comments PHOSPHORUS (BEAKER) (test code = 604) 3.7 mg/dL 2.3-4.7 [id number] 07:45:00* Test Item Value Reference Range Interpretation Comments MAGNESIUM (BEAKER) (test code = 627) 2.0 mg/dL 1.6-2.6 BASIC METABOLIC [id number] 07:45:00* Test Item Value Reference Range Interpretation Comments SODIUM (BEAKER) (test code = 381) 136 meq/L 136-145 POTASSIUM (BEAKER) (test code = 379) 3.9 meq/L 3.5-5.1 CHLORIDE (BEAKER) (test code = 382) 106 meq/L 98-107 CO2 (BEAKER) (test code = 355) 25 meq/L 22-29 BLOOD UREA NITROGEN (BEAKER) (test code = 354) 9 mg/dL 7-21 CREATININE (BEAKER) (test code = 358) 0.66 mg/dL 0.57-1.25 GLUCOSE RANDOM (BEAKER) (test code = 652) 104 mg/dL 70-105 CALCIUM (BEAKER) (test code = 697) 8.9 mg/dL 8.4-10.2 EGFR (BEAKER) (test code = 1092) 113 mL/min/1.73 sq m ESTIMATED GFR IS NOT ACCURATE CREATININE CLEARANCE IN PREDICTING GLOMERULAR FILTRATION RATE. ESTIMATED GFR IS NOT APPLICABLE FOR DIALYSIS PATIENTS. RAD, CHEST, 1 VIEW, NON [id number] 07:27:00Reason for exam:-> pneumothoraxShould this be performed at the bedside?->YesFINAL REPORT Portable chest. CLINICAL HISTORY: pneumothorax. COMPARISON STUDY: Chest x-ray from yesterday. FINDINGS: The cardiac silhouette is enlarged. The pulmonary parenchyma demonstrates no focal opacity. The support lines and tubes are unchanged. A 1.7 cm left apical pneumothorax remains. Degenerative changes are noted. IMPRESSION: No significant change. Small left apical pneumothorax. Signed: Enrique Valdivia MDReport Verified Date/Time: 09/13/2018 07:27:40 Reading Location: [facility] C013 Consult Reading Room W/PLT COUNT & AUTO [id number] 05:16:00* Test Item Value Reference Range Interpretation Comments WHITE BLOOD CELL COUNT (BEAKER) (test code = 775) 6.1 K/ L 3.5- 10.5 RED BLOOD CELL COUNT (BEAKER) (test code = 761) 4.25 M/ L 3.93-5 .22 HEMOGLOBIN (BEAKER) (test code = 410) 12.0 GM/DL 11.2-15.7 HEMATOCRIT (BEAKER) (test code = 411) 36.9 % 34.1-44.9 MEAN CORPUSCULAR VOLUME (BEAKER) (test code = 753) 86.8 fL 79. 4-94.8 MEAN CORPUSCULAR HEMOGLOBIN (BEAKER) (test code = 751) 28.2 pg 25.6-32.2 MEAN CORPUSCULAR HEMOGLOBIN CONC (BEAKER) (test code = 752) 32.5 GM/DL 32.2-35.5 RED CELL DISTRIBUTION WIDTH (BEAKER) (test code = 412) 13.0 % 11.7-14.4 PLATELET COUNT (BEAKER) (test code = 756) 241 K/CU MM 150-450 MEAN PLATELET VOLUME (BEAKER) (test code = 754) 8.9 fL 9.4-12 .3 L NUCLEATED RED BLOOD CELLS (BEAKER) (test code = 413) 0 /100 WBC 0 -0 NEUTROPHILS RELATIVE PERCENT (BEAKER) (test code = 429) 53 % LYMPHOCYTES RELATIVE PERCENT (BEAKER) (test code = 430) 33 % MONOCYTES RELATIVE PERCENT (BEAKER) (test code = 431) 9 % EOSINOPHILS RELATIVE PERCENT (BEAKER) (test code = 432) 4 % BASOPHILS RELATIVE PERCENT (BEAKER) (test code = 437) 1 % NEUTROPHILS ABSOLUTE COUNT (BEAKER) (test code = 670) 3.19 K/ L 1.56-6.13 LYMPHOCYTES ABSOLUTE COUNT (BEAKER) (test code = 414) 2.01 K/ L 1.18-3.74 MONOCYTES ABSOLUTE COUNT (BEAKER) (test code = 415) 0.55 K/ L 0. 24-0.36 H EOSINOPHILS ABSOLUTE COUNT (BEAKER) (test code = 416) 0.26 K/ L 0.04-0.36 BASOPHILS ABSOLUTE COUNT (BEAKER) (test code = 417) 0.03 K/ L 0. 01-0.08 IMMATURE GRANULOCYTES-RELATIVE PERCENT (BEAKER) (test code = 2801) 0 % 0-1 RAD, CHEST, 1 VIEW, NON [id number] 07:47:00Reason for exam:-> pneumothoraxShould this be performed at the bedside?->YesFINAL REPORT RAD, CHEST, 1 VIEW, NON DEPT INDICATION: pneumothorax COMPARISON: Prior day's exam FINDINGS: Portable frontal view of the chest. IMPRESSION: Support Lines: Stable. Lungs and pleura: Stable left apical and medial pneumothorax. Right lung is clear. No effusion.Heart and mediastinum: Stable contours. Additional findings: Persistent curvature of the axial skeleton. Signed: JR Baires Robert MDReport Verified Date/Time: 09/12/2018 07: 47:05 Reading Location: [facility] C0[facility] Neuro Reading Room [id number] 05:51:00 * Test Item Value Reference Range Interpretation Comments PHOSPHORUS (BEAKER) (test code = 604) 4.3 mg/dL 2.3-4.7 [id number] 05:51:00* Test Item Value Reference Range Interpretation Comments MAGNESIUM (BEAKER) (test code = 627) 1.9 mg/dL 1.6-2.6 BASIC METABOLIC [id number] 05:51:00* Test Item Value Reference Range Interpretation Comments SODIUM (BEAKER) (test code = 381) 139 meq/L 136-145 POTASSIUM (BEAKER) (test code = 379) 3.8 meq/L 3.5-5.1 CHLORIDE (BEAKER) (test code = 382) 107 meq/L 98-107 CO2 (BEAKER) (test code = 355) 27 meq/L 22-29 BLOOD UREA NITROGEN (BEAKER) (test code = 354) 11 mg/dL 7-21 CREATININE (BEAKER) (test code = 358) 0.68 mg/dL 0.57-1.25 GLUCOSE RANDOM (BEAKER) (test code = 652) 106 mg/dL 70-105 H CALCIUM (BEAKER) (test code = 697) 9.0 mg/dL 8.4-10.2 EGFR (BEAKER) (test code = 1092) 109 mL/min/1.73 sq m ESTIMATED GFR IS NOT ACCURATE CREATININE CLEARANCE IN PREDICTING GLOMERULAR FILTRATION RATE. ESTIMATED GFR IS NOT APPLICABLE FOR DIALYSIS PATIENTS. CBC W/PLT COUNT & AUTO [id number] 05:18:00* Test Item Value Reference Range Interpretation Comments WHITE BLOOD CELL COUNT (BEAKER) (test code = 775) 5.7 K/ L 3.5- 10.5 RED BLOOD CELL COUNT (BEAKER) (test code = 761) 4.47 M/ L 3.93-5 .22 HEMOGLOBIN (BEAKER) (test code = 410) 12.7 GM/DL 11.2-15.7 HEMATOCRIT (BEAKER) (test code = 411) 39.4 % 34.1-44.9 MEAN CORPUSCULAR VOLUME (BEAKER) (test code = 753) 88.1 fL 79. 4-94.8 MEAN CORPUSCULAR HEMOGLOBIN (BEAKER) (test code = 751) 28.4 pg 25.6-32.2 MEAN CORPUSCULAR HEMOGLOBIN CONC (BEAKER) (test code = 752) 32.2 GM/DL 32.2-35.5 RED CELL DISTRIBUTION WIDTH (BEAKER) (test code = 412) 12.9 % 11.7-14.4 PLATELET COUNT (BEAKER) (test code = 756) 239 K/CU MM 150-450 MEAN PLATELET VOLUME (BEAKER) (test code = 754) 9.1 fL 9.4-12 .3 L NUCLEATED RED BLOOD CELLS (BEAKER) (test code = 413) 0 /100 WBC 0 -0 NEUTROPHILS RELATIVE PERCENT (BEAKER) (test code = 429) 53 % LYMPHOCYTES RELATIVE PERCENT (BEAKER) (test code = 430) 33 % MONOCYTES RELATIVE PERCENT (BEAKER) (test code = 431) 10 % EOSINOPHILS RELATIVE PERCENT (BEAKER) (test code = 432) 4 % BASOPHILS RELATIVE PERCENT (BEAKER) (test code = 437) 1 % NEUTROPHILS ABSOLUTE COUNT (BEAKER) (test code = 670) 3.00 K/ L 1.56-6.13 LYMPHOCYTES ABSOLUTE COUNT (BEAKER) (test code = 414) 1.89 K/ L 1.18-3.74 MONOCYTES ABSOLUTE COUNT (BEAKER) (test code = 415) 0.56 K/ L 0. 24-0.36 H EOSINOPHILS ABSOLUTE COUNT (BEAKER) (test code = 416) 0.20 K/ L 0.04-0.36 BASOPHILS ABSOLUTE COUNT (BEAKER) (test code = 417) 0.03 K/ L 0. 01-0.08 IMMATURE GRANULOCYTES-RELATIVE PERCENT (BEAKER) (test code = 2801) 0 % 0-1 CT, DRAINAGE, CHEST TUBE [id number] 19:09:00Reason for exam:->Left Chest tube 14 f pigtail chest tube placement needed (persistent airleak with previous chest tube in the fissure)FINAL REPORT CT- guided chest tube placement dated 09/11/2018 Procedure: CT-guided left pigtail chest tube placement Clinical Indication: Left pneumothorax Sedation: Moderate sedation was administered. 1 mg of Versed and 50 mcg fentanyl IV was used for moderate sedation monitored under my direction. Total intraservice time of the sedation was [50 minutes]. The patient's vital signs were monitored throughout the procedure and recorded in the patient's medical record by the nurse. Anesthesia: 1% Xylocaine local anesthesia. Technique: This exam was performed according to our departmental dose-optimization program, which includes automated exposure control, adjustment of the mA and/or kV according to patient size and/or use of interactive reconstruction technique. After obtaining informed consent, CT-guided chest tube placement was performed under usual sterile technique. After placing a 19-gauge coaxial needle and guidewire in the left lower lateral chest wall, the tract with dilated with a a 6 and 8 Sami dilators. An 8 Sami all-purpose drainage catheter was placed. The catheter was left in place, secured to skin with suture, and connected to wall suction with resolution of the pneumothorax. Complication: None Estimated Blood Loss: None Impression: CT-guided pigtail left chest tube placement. Signed: Alycia Gonsales MD Report Verified Date/Time: 09/11/2018 19:09:45 Reading Location: [facility] [address] [place] [address] Body Reading Room Electronically signed by: ALYCIA GONSALES M.D. on 019 07:09 PM PT/[id number] 12:37:00* Test Item Value Reference Range Interpretation Comments PROTIME (BEAKER) (test code = 759) 15.0 seconds 11.9-14.2 H INR (BEAKER) (test code = 370) 1.2 <=5.9 PARTIAL THROMBOPLASTIN TIME (BEAKER) (test code = 760) 28.1 seconds 22.5-36.0 Effective 07/15/2018: PT Reference Range ChangeNew: 11.9-14.2 Previous: 11.7-14. 7RECOMMENDED COUMADIN/WARFARIN INR THERAPY RANGESSTANDARD DOSE: 2.0-3.0 Include s: PROPHYLAXIS for venous thrombosis, systemic embolization; TREATMENT for venou s thrombosis and/or pulmonary embolus.HIGH RISK: Target INR is 2.5-3.5 for patie nts wiht mechanical heart valves.Needs to be drawn for pigtail placement, call C T once labs resulted to coordinate placement.Needs to be drawn for pigtail place ment, call CT once labs resulted to coordinate placement.Needs to be drawn for p igtail placement, call CT once labs resulted to coordinate placement.Needs to be drawn for pigtail placement, call CT once labs resulted to coordinate placement. PROTHROMBIN TIME/[id number] 12:36:00* Test Item Value Reference Range Interpretation Comments PROTIME (BEAKER) (test code = 759) 15.0 seconds 11.9-14.2 H INR (BEAKER) (test code = 370) 1.2 <=5.9 Effective 07/15/2018: PT Reference Range ChangeNew: 11.9-14.2 Previous: 11.7-14. 7RECOMMENDED COUMADIN/WARFARIN INR THERAPY RANGESSTANDARD DOSE: 2.0-3.0 Include s: PROPHYLAXIS for venous thrombosis, systemic embolization; TREATMENT for venou s thrombosis and/or pulmonary embolus.HIGH RISK: Target INR is 2.5-3.5 for patie nts wiht mechanical heart valves.RAD, CHEST, 1 VIEW, NON [id number] 09:42:00 Reason for exam:->pneumothoraxShould this be performed at the bedside?->YesFINAL REPORT RAD, CHEST, 1 VIEW, NON DEPT CLINICAL INDICATION: pneumothorax COMPARISON: Radiograph 09/10/2018, CT 09/11/2018 TECHNIQUE: AP view of the chest FINDINGS: Unchanged left sided chest tube. There is a persistent small left apical pneumothorax. No new focal consolidation or pleural effusion. Cardiomediastinal silhouette, vicki, and pulmonary vasculature are unchanged.. IMPRESSION:Persistent small left apical pneumothorax. Signed: Maribeth Crooks MD Report Verified Date/Time: 09/11/2018 09:42:59 Reading Location: [facility] Radiology Reading Room , CHEST, WITHOUT [id number] 06:31:00FINAL REPORT EXAM: CT of the chest, without contrast CLINICAL HISTORY: Ped, dyspnea, pneumothorax suspected Technique: CT of the chest was performed without intravenous contrast administration. This exam was performed according to our departmental dose optimization program which includes automated exposure control, adjustment of the mA and/or kV according to patient's size and/or use of iterative reconstructive technique. COMPARISON: None FINDINGS: L OWER NECK: Within normal limits.AIRWAYS, PLEURA AND LUNGS: Left chest tube with tip in the left lung apex Patent central tracheobronchial tree. Small to moderat e left pneumothorax. Small right apical blebs. No focal pulmonary consolidation .VESSELS: Within normal limits.HEART: Normal heart size. No pericardial effusion .VICKI AND MEDIASTINUM: Within normal limits.VISUALIZED UPPER ABDOMEN: Within nor mal limits.SOFT TISSUES: Subcutaneous emphysema in the left lateral chest wall.B ONES: Within normal limits. IMPRESSION: Small to moderate left pneumothorax. Lef t chest tube in situ. Signed: Rubi Dumont MDReport Verified Date/Time: 2018 06:31:23 [id number] 06:03:00* Test Item Value Reference Range Interpretation Comments PHOSPHORUS (BEAKER) (test code = 604) 4.4 mg/dL 2.3-4.7 [id number] 06:03:00* Test Item Value Reference Range Interpretation Comments MAGNESIUM (BEAKER) (test code = 627) 2.0 mg/dL 1.6-2.6 BASIC METABOLIC [id number] 06:03:00* Test Item Value Reference Range Interpretation Comments SODIUM (BEAKER) (test code = 381) 138 meq/L 136-145 POTASSIUM (BEAKER) (test code = 379) 3.7 meq/L 3.5-5.1 CHLORIDE (BEAKER) (test code = 382) 107 meq/L 98-107 CO2 (BEAKER) (test code = 355) 25 meq/L 22-29 BLOOD UREA NITROGEN (BEAKER) (test code = 354) 8 mg/dL 7-21 CREATININE (BEAKER) (test code = 358) 0.72 mg/dL 0.57-1.25 GLUCOSE RANDOM (BEAKER) (test code = 652) 107 mg/dL 70-105 H CALCIUM (BEAKER) (test code = 697) 8.7 mg/dL 8.4-10.2 EGFR (BEAKER) (test code = 1092) 102 mL/min/1.73 sq m ESTIMATED GFR IS NOT ACCURATE CREATININE CLEARANCE IN PREDICTING GLOMERULAR FILTRATION RATE. ESTIMATED GFR IS NOT APPLICABLE FOR DIALYSIS PATIENTS. CBC W/PLT COUNT & AUTO [id number] 05:04:00* Test Item Value Reference Range Interpretation Comments WHITE BLOOD CELL COUNT (BEAKER) (test code = 775) 5.4 K/ L 3.5- 10.5 RED BLOOD CELL COUNT (BEAKER) (test code = 761) 4.37 M/ L 3.93-5 .22 HEMOGLOBIN (BEAKER) (test code = 410) 12.3 GM/DL 11.2-15.7 HEMATOCRIT (BEAKER) (test code = 411) 38.4 % 34.1-44.9 MEAN CORPUSCULAR VOLUME (BEAKER) (test code = 753) 87.9 fL 79. 4-94.8 MEAN CORPUSCULAR HEMOGLOBIN (BEAKER) (test code = 751) 28.1 pg 25.6-32.2 MEAN CORPUSCULAR HEMOGLOBIN CONC (BEAKER) (test code = 752) 32.0 GM/DL 32.2-35.5 L RED CELL DISTRIBUTION WIDTH (BEAKER) (test code = 412) 13.0 % 11.7-14.4 PLATELET COUNT (BEAKER) (test code = 756) 242 K/CU MM 150-450 MEAN PLATELET VOLUME (BEAKER) (test code = 754) 9.0 fL 9.4-12 .3 L NUCLEATED RED BLOOD CELLS (BEAKER) (test code = 413) 0 /100 WBC 0 -0 NEUTROPHILS RELATIVE PERCENT (BEAKER) (test code = 429) 48 % LYMPHOCYTES RELATIVE PERCENT (BEAKER) (test code = 430) 38 % MONOCYTES RELATIVE PERCENT (BEAKER) (test code = 431) 10 % EOSINOPHILS RELATIVE PERCENT (BEAKER) (test code = 432) 4 % BASOPHILS RELATIVE PERCENT (BEAKER) (test code = 437) 0 % NEUTROPHILS ABSOLUTE COUNT (BEAKER) (test code = 670) 2.59 K/ L 1.56-6.13 LYMPHOCYTES ABSOLUTE COUNT (BEAKER) (test code = 414) 2.04 K/ L 1.18-3.74 MONOCYTES ABSOLUTE COUNT (BEAKER) (test code = 415) 0.56 K/ L 0. 24-0.36 H EOSINOPHILS ABSOLUTE COUNT (BEAKER) (test code = 416) 0.22 K/ L 0.04-0.36 BASOPHILS ABSOLUTE COUNT (BEAKER) (test code = 417) 0.02 K/ L 0. 01-0.08 IMMATURE GRANULOCYTES-RELATIVE PERCENT (BEAKER) (test code = 2801) 0 % 0-1 RAD, CHEST, 1 VIEW, NON [id number] 15:19:00Reason for exam:-> pneumothoraxShould this be performed at the bedside?->YesFINAL REPORT RAD, CHEST, 1 VIEW, NON DEPT CLINICAL INDICATION: pneumothorax COMPARISON: Radiograph six hours prior, 09/10/2018 TECHNIQUE: Frontal view of the chest FINDINGS/IMPRESSION: Unchanged left-sided chest tube. Interval decrease in size of left pneumothorax. No other significant interval change. Signed: Maribeth Crooks Verified Date/Time: 09/10/2018 15:19:46 Reading Location: [address] Consult Reading Room EN, [id number] 13:58:00* Test Item Value Reference Range Interpretation Comments TEST URINE (BEAKER) (test code = 583) Negative RAD, CHEST, 1 VIEW, NON [id number] 08:29:00Reason for exam:->pneumothorax FINAL REPORT RAD, CHEST, 1 VIEW, NON DEPT CLINICAL INDICA TION: pneumothorax COMPARISON: Radiograph 09/09/2018 TECHNIQUE: AP view of the ch est FINDINGS: Unchanged left-sided chest tube. Interval enlargement of left apic al pneumothorax. No focal consolidation or pleural effusion. Cardiomediastinal s ilhouette, vicki, and pulmonary vasculature are unchanged. IMPRESSION:Enlarging l eft apical pneumothorax. Signed: Maribeth Crooks Verified Date/Time: 08:29:21 Reading Location: [facility] Radiology Reading Room Electr onically signed by: MARIBETH CROOKS MD on 09/10/2018 08:29 AM [id number] 03:34:00* Test Item Value Reference Range Interpretation Comments PHOSPHORUS (BEAKER) (test code = 604) 5.0 mg/dL 2.3-4.7 H [id number] 03:34:00* Test Item Value Reference Range Interpretation Comments MAGNESIUM (BEAKER) (test code = 627) 2.0 mg/dL 1.6-2.6 BASIC METABOLIC [id number] 03:34:00* Test Item Value Reference Range Interpretation Comments SODIUM (BEAKER) (test code = 381) 136 meq/L 136-145 POTASSIUM (BEAKER) (test code = 379) 4.4 meq/L 3.5-5.1 CHLORIDE (BEAKER) (test code = 382) 104 meq/L 98-107 CO2 (BEAKER) (test code = 355) 25 meq/L 22-29 BLOOD UREA NITROGEN (BEAKER) (test code = 354) 6 mg/dL 7-21 L CREATININE (BEAKER) (test code = 358) 0.74 mg/dL 0.57-1.25 GLUCOSE RANDOM (BEAKER) (test code = 652) 100 mg/dL 70-105 CALCIUM (BEAKER) (test code = 697) 9.6 mg/dL 8.4-10.2 EGFR (BEAKER) (test code = 1092) 99 mL/min/1.73 sq m ESTIMATED GFR IS NOT ACCURATE CREATININE CLEARANCE IN PREDICTING GLOMERULAR FILTRATION RATE. ESTIMATED GFR IS NOT APPLICABLE FOR DIALYSIS PATIENTS. Specimen slightly ictericCBC W/PLT COUNT & AUTO [id number] 03:15:00 * Test Item Value Reference Range Interpretation Comments WHITE BLOOD CELL COUNT (BEAKER) (test code = 775) 8.7 K/ L 3.5- 10.5 RED BLOOD CELL COUNT (BEAKER) (test code = 761) 4.60 M/ L 3.93-5 .22 HEMOGLOBIN (BEAKER) (test code = 410) 13.0 GM/DL 11.2-15.7 HEMATOCRIT (BEAKER) (test code = 411) 41.0 % 34.1-44.9 MEAN CORPUSCULAR VOLUME (BEAKER) (test code = 753) 89.1 fL 79. 4-94.8 MEAN CORPUSCULAR HEMOGLOBIN (BEAKER) (test code = 751) 28.3 pg 25.6-32.2 MEAN CORPUSCULAR HEMOGLOBIN CONC (BEAKER) (test code = 752) 31.7 GM/DL 32.2-35.5 L RED CELL DISTRIBUTION WIDTH (BEAKER) (test code = 412) 13.0 % 11.7-14.4 PLATELET COUNT (BEAKER) (test code = 756) 262 K/CU MM 150-450 MEAN PLATELET VOLUME (BEAKER) (test code = 754) 8.8 fL 9.4-12 .3 L NUCLEATED RED BLOOD CELLS (BEAKER) (test code = 413) 0 /100 WBC 0 -0 NEUTROPHILS RELATIVE PERCENT (BEAKER) (test code = 429) 73 % LYMPHOCYTES RELATIVE PERCENT (BEAKER) (test code = 430) 20 % MONOCYTES RELATIVE PERCENT (BEAKER) (test code = 431) 6 % EOSINOPHILS RELATIVE PERCENT (BEAKER) (test code = 432) 0 % BASOPHILS RELATIVE PERCENT (BEAKER) (test code = 437) 0 % NEUTROPHILS ABSOLUTE COUNT (BEAKER) (test code = 670) 6.35 K/ L 1.56-6.13 H LYMPHOCYTES ABSOLUTE COUNT (BEAKER) (test code = 414) 1.77 K/ L 1.18-3.74 MONOCYTES ABSOLUTE COUNT (BEAKER) (test code = 415) 0.50 K/ L 0. 24-0.36 H EOSINOPHILS ABSOLUTE COUNT (BEAKER) (test code = 416) 0.03 K/ L 0.04-0.36 L BASOPHILS ABSOLUTE COUNT (BEAKER) (test code = 417) 0.03 K/ L 0. 01-0.08 IMMATURE GRANULOCYTES-RELATIVE PERCENT (BEAKER) (test code = 2801) 0 % 0-1 RAD, CHEST, 1 VIEW, NON [id number] 13:15:00Reason for exam:->evaluate pneumoCT placed back on suction after previous cxrShould this be performed at the bedside?->YesFINAL REPORT AP chest HISTORY: Pneumothorax. COMPARISON: 09/09/2018. IMPRESSION: Left thoracostomy tube. Small left apical pneumothorax, decreased in size. Right lung clear. Stable cardiac silhouette. Signed: Pauline Foster MDReport Verified Date/Time: 09/09/2018 13:15:52 Reading Location: [facility] Mammo Reading Room , CHEST, 1 VIEW, NON DEPT 2018-09-09 13:14:00Reason for exam:->pneumothorax s/p chest tubeShould this be performed at the bedside?->YesFINAL REPORT AP chest HISTORY: Pneumothorax. Chest tube. COMPARISON: None. IMPRESSION: Left thoracostomy tube. Small left apical pneumothorax. Right lung clear. Heart size normal. Signed: Pauline Foster MDReport Verified Date/Time: 09/09/2018 13:14:48 Reading Location: [facility] Reading Room [id number] 04:07:00* Test Item Value Reference Range Interpretation Comments PHOSPHORUS (BEAKER) (test code = 604) 3.2 mg/dL 2.3-4.7 [id number] 04:07:00* Test Item Value Reference Range Interpretation Comments MAGNESIUM (BEAKER) (test code = 627) 1.8 mg/dL 1.6-2.6 BASIC METABOLIC [id number] 04:07:00* Test Item Value Reference Range Interpretation Comments SODIUM (BEAKER) (test code = 381) 140 meq/L 136-145 POTASSIUM (BEAKER) (test code = 379) 3.6 meq/L 3.5-5.1 CHLORIDE (BEAKER) (test code = 382) 110 meq/L 98-107 H CO2 (BEAKER) (test code = 355) 24 meq/L 22-29 BLOOD UREA NITROGEN (BEAKER) (test code = 354) 6 mg/dL 7-21 L CREATININE (BEAKER) (test code = 358) 0.71 mg/dL 0.57-1.25 GLUCOSE RANDOM (BEAKER) (test code = 652) 101 mg/dL 70-105 CALCIUM (BEAKER) (test code = 697) 9.0 mg/dL 8.4-10.2 EGFR (BEAKER) (test code = 1092) 104 mL/min/1.73 sq m ESTIMATED GFR IS NOT ACCURATE CREATININE CLEARANCE IN PREDICTING GLOMERULAR FILTRATION RATE. ESTIMATED GFR IS NOT APPLICABLE FOR DIALYSIS PATIENTS. CBC W/PLT COUNT & AUTO [id number] 03:45:00* Test Item Value Reference Range Interpretation Comments WHITE BLOOD CELL COUNT (BEAKER) (test code = 775) 10.9 K/ L 3.5- 10.5 H RED BLOOD CELL COUNT (BEAKER) (test code = 761) 4.51 M/ L 3.93-5 .22 HEMOGLOBIN (BEAKER) (test code = 410) 12.8 GM/DL 11.2-15.7 HEMATOCRIT (BEAKER) (test code = 411) 40.2 % 34.1-44.9 MEAN CORPUSCULAR VOLUME (BEAKER) (test code = 753) 89.1 fL 79. 4-94.8 MEAN CORPUSCULAR HEMOGLOBIN (BEAKER) (test code = 751) 28.4 pg 25.6-32.2 MEAN CORPUSCULAR HEMOGLOBIN CONC (BEAKER) (test code = 752) 31.8 GM/DL 32.2-35.5 L RED CELL DISTRIBUTION WIDTH (BEAKER) (test code = 412) 13.2 % 11.7-14.4 PLATELET COUNT (BEAKER) (test code = 756) 247 K/CU MM 150-450 MEAN PLATELET VOLUME (BEAKER) (test code = 754) 9.3 fL 9.4-12 .3 L NUCLEATED RED BLOOD CELLS (BEAKER) (test code = 413) 0 /100 WBC 0 -0 NEUTROPHILS RELATIVE PERCENT (BEAKER) (test code = 429) 73 % LYMPHOCYTES RELATIVE PERCENT (BEAKER) (test code = 430) 19 % MONOCYTES RELATIVE PERCENT (BEAKER) (test code = 431) 7 % EOSINOPHILS RELATIVE PERCENT (BEAKER) (test code = 432) 0 % BASOPHILS RELATIVE PERCENT (BEAKER) (test code = 437) 0 % NEUTROPHILS ABSOLUTE COUNT (BEAKER) (test code = 670) 8.00 K/ L 1.56-6.13 H LYMPHOCYTES ABSOLUTE COUNT (BEAKER) (test code = 414) 2.03 K/ L 1.18-3.74 MONOCYTES ABSOLUTE COUNT (BEAKER) (test code = 415) 0.74 K/ L 0. 24-0.36 H EOSINOPHILS ABSOLUTE COUNT (BEAKER) (test code = 416) 0.04 K/ L 0.04-0.36 BASOPHILS ABSOLUTE COUNT (BEAKER) (test code = 417) 0.03 K/ L 0. 01-0.08 IMMATURE GRANULOCYTES-RELATIVE PERCENT (BEAKER) (test code = 2801) 0 % 0-1 CHEST SINGLE (PORTABLE)2018-09-09 01:50:00 [facility] [address] [id number] Patient Name: GORDO SERRANO MR #: [id number] : 1995 Age/Sex: 22/F Req #: [id number] Adm Physician: Ordered by: JAYE NORIEGA MD Report #: [id number] Location: ER Room/Bed: Procedure: DX/CHEST SINGLE (PORTABLE) Exam Date: Exam T ilir: REPORT STATUS: Signed EXAM INATION: CHEST SINGLE (PORTABLE) INDICATION: post chest tube COMPARISON: Same day x-ray FINDINGS: See impression. IMPRES ELIANA: Interval retraction of left chest tube with tip now projecting over the left midlung. No visible pneumothorax. Signed by: Dr. Edison Gill MD on 09/09/2018 1:53 AM Dictated By: EDISON GILL MD Electronically S igned By: EDISON GILL MD on 09/09/18152 Transcribed By: A[place]ANDRI[place] on 09/09/18152 COPY TO: JAYE NORIEGA MD Sodium [id number] 01:34:00 * Test Item Value Reference Range Interpretation Comments Sodium Level (test code = 2951-2) 139 136-145 [facility] [id number] 01:34:00* Test Item Value Reference Range Interpretation Comments Potassium Level (test code = 2823-3) 3.6 3.5-5.1 [facility]viewChloride [id number] 01:34:00* Test Item Value Reference Range Interpretation Comments Chloride Level (test code = 2075-0) 104 98-107 [facility]viewCarbon Dioxide [id number] 01:34:00* Test Item Value Reference Range Interpretation Comments Carbon Dioxide Level (test code = 2028-9) 25 22-29 [facility] LongviewAnion [id number] 01:34:00* Test Item Value Reference Range Interpretation Comments Anion Gap (test code = 37533-6) 13.6 8-16 [facility]viewBlood Urea [id number] 01:34:00* Test Item Value Reference Range Interpretation Comments Blood Urea Nitrogen (test code = 3094-0) 7 7-26 [facility]viewCreatinine2019-07-24 01:34:00* Test Item Value Reference Range Interpretation Comments Creatinine (test code = 2160-0) 0.74 0.57-1.11 [facility]viewBUN/Creatinine [id number] 01:34:00* Test Item Value Reference Range Interpretation Comments BUN/Creatinine Ratio (test code = 3097-3) 9 6-25 [facility] LongviewEstimat Glomerular Filtration Rate 2018-09-09 01:34:00* Test Item Value Reference Range Interpretation Comments Estimat Glomerular Filtration Rate (test code = 753612315) > 60 >60 Ranges were taken from the National Kidney Disease Education Program and the [facility] literature.Reference ranges:60 or greater: Kcnett55-47 ( for 3 consecutive months): Chronic kidney disease 15 or less: Kidney failureCHRISTUS [facility] – LongviewGlucose [id number] 01:34:00* Test Item Value Reference Range Interpretation Comments Glucose Level (test code = EPF8062) 121 74-118 H [facility] LongviewCalcium [id number] 01:34:00* Test Item Value Reference Range Interpretation Comments Calcium Level (test code = 99418-6) 9.7 8.4-10.2 [facility] LongviewTotal [id number] 01:34:00* Test Item Value Reference Range Interpretation Comments Total Bilirubin (test code = 1975-2) 0.8 0.2-1.2 [facility] LongviewAspartate Amino Transf (AST/SGOT) 2018-09-09 01:34:00* Test Item Value Reference Range Interpretation Comments Aspartate Amino Transf (AST/SGOT) (test code = Aspartate Amino Transf (AST/SGOT)) 15 5-34 [facility] LongviewAlanine Aminotransferase (ALT/SGPT) 2018-09-09 01:34:00* Test Item Value Reference Range Interpretation Comments Alanine Aminotransferase (ALT/SGPT) (test code = 1742-6) 14 0-55 [facility] LongviewTotal [id number] 01:34:00* Test Item Value Reference Range Interpretation Comments Total Protein (test code = 2885-2) 7.7 6.5-8.1 [facility] LongviewAlbumin2019-07-24 01:34:00* Test Item Value Reference Range Interpretation Comments Albumin (test code = 1751-7) 4.4 3.5-5.0 [facility]viewGlobulin2019-07-24 01:34:00* Test Item Value Reference Range Interpretation Comments Globulin (test code = 69216-6) 3.3 2.3-3.5 [facility]viewAlbumin/Globulin [id number] 01:34:00 * Test Item Value Reference Range Interpretation Comments Albumin/Globulin Ratio (test code = 1759-0) 1.3 0.8-2.0 [facility]viewAlkaline Vixhwtzuajn1148-02-26 01:34:00* Test Item Value Reference Range Interpretation Comments Alkaline Phosphatase (test code = 6768-6) 58 40-150 [facility]viewCHEST SINGLE ([facility]ABLE)2018-09-09 01:20:[address] [address] Patient Name: GORDO SERRANO MR #: [id number] : 1995 Age/Sex: 22/F Req #: [id number] Adm Physician: Ordered by: JAYE NORIEGA MD Report #: [id number] Location: ER Room/Bed: Procedure: 072 0009 DX/CHEST SINGLE (PORTABLE) Exam Date: Exam T ilir: REPORT STATUS: Signed EXAM INATION: CHEST SINGLE (PORTABLE) INDICATION: post chest tube insertion COMPARISON: Same day at 0022 hours FINDINGS: AP view TUBES and LINES: Interval left chest tube placement with tip projecting left apex. LUNGS: Lungs are well inflated. Minimal midlung linear atelectasis/scarring. There is no evidence of pneumonia or pulmonary edema. PLEURA: No pleural effusion or pneumothorax. HEART AND MEDIASTINUM: The cardiomediastinal silhouette is unremarkable. BONES AND SOFT TISSUES: No acute osseous lesion. Mild scoliosis. Soft tissues are unremarkable. UPPER ABDOMEN: No free air under the diaphragm. IMPRESSION: Interval chest tube placement with reexpansion of the left lung and resolution of the previously seen large left pneumothorax. Signed by: Dr. Edison Gill MD on 09/09/2018 1:22 AM Dictated By: EDISON GILL MD Electronically Sig [email or web address] By: EDISON GILL MD on 09/09/18 0122 Transcribed By: [place] on 09/09/18 0 122 COPY TO: JAYE NORIEGA MD White Blood [id number] 01:06:00* Test Item Value Reference Range Interpretation Comments White Blood Count (test code = 6690-2) 6.22 4.8-10.8 [id number] 01:06:00* Test Item Value Reference Range Interpretation Comments Red Blood Count (test code = 789-8) 4.69 3.6-5.1 [facility] 01:06:00* Test Item Value Reference Range Interpretation Comments Hemoglobin (test code = 69084-8) 13.2 12.0-16.0 [facility] [facility] 01:06:00* Test Item Value Reference Range Interpretation Comments Hematocrit (test code = 4544-3) 40.4 34.2-44.1 [facility] Corpuscular [id number] 01:06:00* Test Item Value Reference Range Interpretation Comments Mean Corpuscular Volume (test code = 787-2) 86.1 81-99 [facility] Corpuscular [id number] 01:06:00* Test Item Value Reference Range Interpretation Comments Mean Corpuscular Hemoglobin (test code = 785-6) 28.1 28-32 [facility] Corp[facility] Hemoglobin Concent 2018-09-09 01:06:00* Test Item Value Reference Range Interpretation Comments Mean Corpuscular Hemoglobin Concent (test code = 786-4) 32.7 31-35 [facility] Cell Distribution [id number] 01:06:00* Test Item Value Reference Range Interpretation Comments Red Cell Distribution Width (test code = 51449-9) 13.4 11.7 -14.4 [facility]viewPlatelet [id number] 01:06:00* Test Item Value Reference Range Interpretation Comments Platelet Count (test code = 777-3) 303 140-360 [facility]viewNeutrophils (%) (Auto)2018-09-09 01:06:00 * Test Item Value Reference Range Interpretation Comments Neutrophils (%) (Auto) (test code = 16329-9) 51.3 38.7-80.0 [facility]viewLymphocytes (%) (Auto)2018-09-09 01:06:00 * Test Item Value Reference Range Interpretation Comments Lymphocytes (%) (Auto) (test code = 736-9) 38.9 18.0-39.1 [facility]ocytes (%) (Auto)2018-09-09 01:06:00* Test Item Value Reference Range Interpretation Comments Monocytes (%) (Auto) (test code = 5905-5) 8.0 4.4-11.3 [facility]osinophils (%) (Auto)2018-09-09 01:06:00 * Test Item Value Reference Range Interpretation Comments Eosinophils (%) (Auto) (test code = 713-8) 1.0 0.0-6.0 [facility]ophils (%) (Auto)2018-09-09 01:06:00* Test Item Value Reference Range Interpretation Comments Basophils (%) (Auto) (test code = 706-2) 0.5 0.0-1.0 [facility]IM GRANULOCYTES %2018-09-09 01:06:00* Test Item Value Reference Range Interpretation Comments IM GRANULOCYTES % (test code = IM GRANULOCYTES %) 0.3 0.0- 1.0 [facility]viewNeutrophils # (Auto)2018-09-09 01:06:00* Test Item Value Reference Range Interpretation Comments Neutrophils # (Auto) (test code = 751-8) 3.2 2.1-6.9 [facility]viewLymphocytes # (Auto)2018-09-09 01:06:00* Test Item Value Reference Range Interpretation Comments Lymphocytes # (Auto) (test code = 73883-2) 2.4 1.0-3.2 [facility]ocytes # (Auto)2018-09-09 01:06:00* Test Item Value Reference Range Interpretation Comments Monocytes # (Auto) (test code = 742-7) 0.5 0.2-0.8 [facility]Eosinophils # (Auto)2018-09-09 01:06:00* Test Item Value Reference Range Interpretation Comments Eosinophils # (Auto) (test code = 711-2) 0.1 0.0-0.4 [facility]ophils # (Auto)2018-09-09 01:06:00* Test Item Value Reference Range Interpretation Comments Basophils # (Auto) (test code = 704-7) 0.0 0.0-0.1 [facility]viewAbsolute Immature Granulocyte (auto 2018-09-09 01:06:00* Test Item Value Reference Range Interpretation Comments Absolute Immature Granulocyte (auto (adali t code = Absolute Immature Granulocyte (auto) 0.02 0-0.1 [facility]viewCHEST SINGLE (PORTABLE)2018-09-09 00:36:00 [place] [address] Patient Name: GORDO SERRANO MR #: [id number] : 1995 Age/Sex: 22/F Req #: [id number] Adm Physician: Ordered by: JAYE NORIEGA MD Report #: [id number] Location: ER Room/Bed: Procedure: [id number] DX/CHEST SINGLE (PORTABLE) Exam Date: 09/09/18 Exam Time: 21 REPORT STATUS: Si gned EXAMINATION: CHEST SINGLE (PORTABLE) INDICATION: post needle decompression [id number] COMPARISON: 09/08/2018 FINDINGS: AP view See impression. IMPRESSION: Slightly decreased, bu t persistent large left pneumothorax following needle decompression. Mildly im proved expansion of the left lung and decreased mediastinal shift to the right . Signed by: Dr. Edison Gill MD on 09/09/2018 12:38 AM Dictated By: EDISON GILL MD 38 Transcribed By: ALEXANDRIA on 09/09/188 COPY TO: JAYE NORIEGA MD CHEST 2 [id number] 23:55:00 [place] [address] Patient Name: GORDO SERRANO MR #: [id number] : 1995 Age/Sex: 22/F Req #: [id number] Adm Physician: Ordered by: JAYE NORIEGA MD Report #: [id number] Location: ER Room/Bed: Procedure: [id number] DX/CHEST 2 VIEWS Exam Date: 09/08/18 Exam Khanh e: [id number] REPORT STATUS: Signed EX AMINATION: CHEST 2 VIEWS INDICATION: CHEST/BACK PAIN [id number] COMPARISON: None FINDINGS: PA and lateral views TUBES and LINES: None. LUNGS and pleura: Right lung is well inflated. Collapsed left lung and the large left pneumothorax. No significant pleural ef fusion. HEART AND MEDIASTINUM: The cardiomediastinal silhouette is unremar kable. BONES AND SOFT TISSUES: No acute osseous lesion. Soft tissues are unremarkable. UPPER ABDOMEN: No free air under the diaphragm. IMPRESSION: Large left pneumothorax with mild mediastinal shift to the righ t, concerning for tension pneumothorax. Collapsed left lung. Findings dis cussed with Dr. Shepherd at 11:57 PM, on 09/08/2018. Signed by: Dr. Edison Gill MD on 09/08/2018 11:58 PM Dictated By: EDISON GILL MD Electron ically Signed By: EDISON GILL MD on 09/08/186 Transcribed By: ALEXANDRIA on 09/08/180 COPY TO: JAYE NORIEGA MD
--- OUTSIDE RECORDS SUMMARY | 2019-11-14 16:45 | XMS REPORT | Clinical Summary ---
Author Author [facility] Organization [facility] Address Unknown Phone Unavailable Care Team Providers Care Siphon Operator Name Role Phone Pcp, No PCP Unavailable Allergies Comments Active Allergy Reactions Severity Noted Date Sulfamethoxazole-Trimetho Swelling 02/03/2018 prim Medications End Date Status Medication Sig Dispensed Refills Start Date 12/16/2018 gabapentin (NEURONTIN) Take 1 270 capsule 0 100 MG capsule capsule (100 9 mg total) by mouth 3 (three) times daily for 90 days. Active Problems Problem Noted Date Acute postthoracotomy pain 09/09/2018 Spontaneous pneumothorax s/p L VATS FESUTS wedge resection, mechanical pleurodesis 09/14/2018 (Devyn) Social History Date Tobacco Use Types Packs/Day Years Used Never Smoker Smokeless Tobacco: Never Used Alcohol Use Drinks/Week oz/Week Comments Yes Alcohol Habits Answer Date Recorded How often do you have a drink containing alcohol? 2-4 time s a month 09/09/2018 How many drinks containing alcohol do you have on 1 or 2 09/09/2018 a typical day when you are drinking? How often do you have six or more drinks on one Not asked occasion? Sex Assigned at Date Recorded Not on file Industry Job Start Date Occupation Not on file Not on file Not on file Travel End Travel History Travel Start No recent travel history available. Last Filed Vital Signs Not on file Plan of Treatment Not on file Results Not on fileafter 11/12/2018 Insurance Payer Benefit Subscriber ID Type Phone Address Plan / Group [employer] - [employer] C[employer]H xxxxxxxxxxx HMO/POS NETWORK Advance Directives For more information, please contact: [facility] [address] [place] [id number] Date Inactivated Comments Code Status Date Activated 09/17/2018 1:54 PM Full Code 09/09/2018 2:15 PM This code status was determined by: Patient
--- OUTSIDE RECORDS SUMMARY | 2019-11-14 16:50 | XMS REPORT | Clinical Summary ---
Author Author [facility] Organization [facility] Address Unknown Phone Unavailable Care Team Providers Care Vegetable Canner Name Role Phone Pcp, No PCP Unavailable [...] pain 09/09/2018 Spontaneous pneumothorax s/p L VATS FESTUS wedge resection, mechanical pleurodesis 09/14/2018 (Devyn) Social [...] Advance Directives For more information, please contact: [facility] [address] [place] [phone] Date Inactivated Comments Code Status Date Activated 09/17/2018 1:54 PM Full Code 09/09/2018 2:15 PM This code status was determined by: Patient
--- OUTSIDE RECORDS SUMMARY | 2019-11-14 16:51 | XMS REPORT | Continuity of Care Document ---
Author Author [facility] t Organization [facility] Address [address] [place] [address] Phone Unavailable Care Team Providers Care Grocery Carrier Name Role Phone AR GALLEGO PCP Gabby IVEY Attphys Unavailable George Shepard MD Attphys FRANCISCA ESCOBAR Attphys Unavailable LEANN, S AMBICA Attphys Unavailable Gabby IVEY Admphys Unavailable FRANCISCA ESCOBAR Admphys Unavailable Payers Payer Name Policy Type Policy Number Effective Date Expiration Date Carter Zepeda [facility] [id number] 2010 00:00:00 [facility] Problems Condition Name Condition Details Condition Category Status Onset Date Resolution Date Last Treatment Date Treating Clinician Comments Source 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 Active 2018-09-09 00:00:00 [facility] Spontaneous pneumothorax s/p L VATS FESTUS wedge resection, mechanical pleurodesis 09/14/2018 (Devyn) Spontaneous pneumothorax s/p L VATS FESTUS wedge resection, mechanical pleurodesis 09/14/2018 (Devyn) Disease Active [facility] Allergies, Adverse Reactions, Alerts Allergy Name Allergy Type Status Severity Reaction(s) Onset Date Inacti ve Date Treating Clinician Comments Source Sulfamethoxazole-Trimethoprim Propensity to adverse reactions Active Swelling 2018-02-03 00:00:00 [facility] Social History Social Habit Start Date Stop Date Quantity Comments Source History SDOH Alcohol Binge [facility] Sex Assigned At [facility] History SDOH Alcohol Frequency 2018-09-09 00:00:00 2018-09-09 00:00:0 0 3 [facility] History SDOH Alcohol Std Drinks 2018-09-09 00:00:00 2018-09-09 00:00: 00 1 [facility] Smoking Status Start Date Stop Date Source Never smoker [facility] Medications Ordered Medication Name Filled Medication Name Start Date Stop Da te Current Medication? Ordering Clinician Indication Dosage Frequency Signature (SIG) Comments Components Source gabapentin (NEURONTIN) 100 MG capsule 2018-09-17 00:00 :00 2018-12-16 23:59:00 No 100mg Q.[id number] Take 1 capsule (100 mg total) by mouth 3 (three) times daily for 90 days. [facility] Procedures Procedure Date / Time Performed Performing Clinician [facility] e X-ray of chest, two views 2018-09-08 00:00:00 JAYE NORIEGA [facility] Encounters Start Date/Time End Date/Time Encounter Type Admission Type Attendi [facility] Care Department Encounter ID Source 2018-09-29 09:34:10 2018-09-29 09:49:10 Office Visit George Yañez [facility] [id number] 2018-09-08 23:15:00 2018-09-09 02:02:00 Departed Emergency Room 1 LEANNJAYE VENEGAS [facility] [id number] [facility] Results Test Description Test Time Test Comments Results Result Comments Source CHEST 2 VIEWS 2019-11-14 13:54:00 [address], [place], [place] [address] Patient Name: GORDO SERRANO MR #: [id number] : 1995 Age/Sex: 23/F Req #: [id number] Adm Physician: CARLENE IVEY MD Ordered by: ELIJAH BALDWIN MD Report #: [id number] Location: MED/SURG Room/Bed: [facility] Procedure: [id number] DX/CHEST 2 VIEWS Exam Date: Exam Time: [...] 1:59 PM Dictated By: ROGE LUNA MD 1103 Transcribed By: ALEXANDRIA on 11/14/19 7372 COPY TO: ELIJAH BALDWIN MD CHEST 2 VIEWS 2019-11-14 07:36:00 [place] [address] Patient Name: GORDO SERRANO MR #: [id number] : 1995 Age/Sex: 23/F Req #: [id number] Adm Physician: CARLENE IVEY MD Ordered by: ELIJAH BALDWIN MD Report #: [id number] Location: MED/SURG Room/Bed: [facility] Procedure: [id number] DX/CHEST 2 VIEWS Exam Date: 11/14/19 Exam [...] BALDWIN MD CHEST SINGLE (PORTABLE) 2019-11-13 23:16:00 [place] [address] Patient Name: GORDO SERRANO MR #: [id number] : 1995 Age/Sex: 23/F Req #: [id number] Adm Physician: Ordered by: ELIJAH BALDWIN MD Report #: [id number] Location: ER Room/Bed: Procedure: [id number] DX/CHEST SINGLE (PORTABLE) Exam Date: 11/13/19 Exam [...] BALDWIN MD CT CHEST WO 2019-11-13 21:45:00 [place] [address] Patient Name: GORDO SERRANO MR #: [id number] : 1995 Age/Sex: 23/F Req #: [id number] Adm Physician: Ordered by: DANA GAMBOA DO Report #: [id number] Location: ER Room/Bed: Procedure: [id number] CT/CT CHEST WO Exam Date: 11/13/19 Exam [...] GAMBOA DO CHEST 2 VIEWS 2019-11-13 20:25:00 [place] [address] Patient Name: GORDO SERRANO MR #: [id number] : 1995 Age/Sex: 23/F Req #: [id number] Adm Physician: Ordered by: DANA GAMBOA DO Report #: [id number] Location: ER Room/Bed: Procedure: [id number] DX/CHEST 2 VIEWS Exam Date: Exam Time: [...] 2018-09-17 14:42:00 Surgical Pat hology Report Case: [id number] Authorizing Provider: George Shepard Collected: 09/14/2018 1601 Nelson Mccormack MD Ordering Location: [facility] Received: 09/14/2018 1636 [facility]IOPER[facility] SERVICES Pathologist: Michael Garcia MD Specimen: Lung, Left Upper Lobe, LEFT UPPER LOBE WEDGE RESECTION A. LUNG, UPPER LOBE, WEDGE RESECTION: - EMPHYSEMA AND BLEBS - NEGATIVE FOR MALIGNANCY Signing Pathologist Direct Phone Line: [phone] signed by Michael Garcia MD on 09/17/2018 at 2:42 [id number] and postop diagnosis: left pneumothoraxLeft upper lobe [...] mottled, spongy parenchyma with no gross lesions. Senior Energy Consultant sections are submitted. Section code: A1, dealer compliance representative of bleb; A2-A3, dealer compliance representative of parenchyma to margin. CG/pl Performed. [...] Additional findings: None. Signed: JR Baires [facility] Verified Date/Time: 09/17/2018 09:44:16 Reading Location: [facility] Radiology Reading Room , CHEST, 1 VIEW, [...] Crooks Verified Date/Time: 09/16/2018 16:21:28 Reading Location: [address] Consult Reading Room , CHEST, 1 [...] Crooks Verified Date/Time: 09/16/2018 11:21:25 Reading Location: [facility] Radiology Reading Room , CHEST, 1 VIEW, [...] Crooks Verified Date/Time: 09/16/2018 08:31:00 Reading Location: [facility] Radiology Reading Room GLOBIN AND HEMATOCRIT 2018-09-16 05:56:00 Test Item HEMOGLOBIN (BEAKER) (test code = 410) 10.9 GM/DL 11.2-15.7 L HEMATOCRIT (BEAKER) (test code = 411) 35.2 % 34.1-44.9 RAD, CHEST, 1 VIEW, NON [id number] 10:21:00Reason for exam:->post opIs the patient ?->NoShould [...] Verified Date/Ti me: 09/15/2018 10:21:05 [facility] Electronical ly signed by: HERBER HUBER MD on 09/15/2018 10:21 AM RAD, CHEST, 1 VIEW, NON [id number] 18:25:00Reason for exam:->post opIs the patient ?->NoShould [...] Veri fied Date/Time: 09/14/2018 18:25:24 Reading Location: [facility] B1 C013W Consult Read ing Room , CHEST, 1 VIEW, NON [id number] 10:09:00Reason for exam:->follow up pneumothoraxShould this be [...] Crooks Verified Date/Time: 09/14/2018 10:09:47 Reading Location: [facility] Radiology Reading Room PHORUS 2018-09-14 07:09:00* Test Item Value Reference Range Interpretation Comments PHOSPHORUS (BEAKER) (test code = 604) 3.8 mg/dL 2.3-4.7 [id number] 07:09:00* Test Item Value Reference Range Interpretation Comments MAGNESIUM (BEAKER) (test code = 627) 1.8 mg/dL 1.6-2.6 BASIC METABOLIC [id number] 07:09:00* Test Item Value Reference Range Interpretation [...] DIALYSIS PATIENTS. CBC W/PLT COUNT & AUTO [id number] 06:47:00* Test Item Value Reference Range Interpretation [...] (test code = 2801) 0 % 0-1 PT/[id number] 06:35:00* Test Item Value Reference Range Interpretation [...] 2.5-3.5 for patie nts wiht mechanical heart valves.[id number] 07:45:00* Test Item Value Reference Range Interpretation Comments PHOSPHORUS (BEAKER) (test code = 604) 3.7 mg/dL 2.3-4.7 [id number] 07:45:00* Test Item Value Reference Range Interpretation Comments MAGNESIUM (BEAKER) (test code = 627) 2.0 mg/dL 1.6-2.6 BASIC METABOLIC [id number] 07:45:00* Test Item Value Reference Range Interpretation [...] DIALYSIS PATIENTS. RAD, CHEST, 1 VIEW, NON [id number] 07:27:00Reason for exam:-> pneumothoraxShould this be performed [...] MDReport Verified Date/Time: 09/13/2018 07:27:40 Reading Location: [facility] C013 Consult Reading Room W/PLT COUNT & AUTO [id number] 05:16:00* Test Item Value Reference Range Interpretation [...] % 0-1 RAD, CHEST, 1 VIEW, NON [id number] 07:47:00Reason for exam:-> pneumothoraxShould this be performed [...] Verified Date/Time: 09/12/2018 07: 47:05 Reading Location: [facility] C0[facility] Neuro Reading Room [id number] 05:51:00 * Test Item Value Reference Range Interpretation Comments PHOSPHORUS (BEAKER) (test code = 604) 4.3 mg/dL 2.3-4.7 [id number] 05:51:00* Test Item Value Reference Range Interpretation Comments MAGNESIUM (BEAKER) (test code = 627) 1.9 mg/dL 1.6-2.6 BASIC METABOLIC [id number] 05:51:00* Test Item Value Reference Range Interpretation [...] DIALYSIS PATIENTS. CBC W/PLT COUNT & AUTO [id number] 05:18:00* Test Item Value Reference Range Interpretation [...] 0 % 0-1 CT, DRAINAGE, CHEST TUBE [id number] 19:09:00Reason for exam:->Left Chest tube 14 f [...] dilated with a a 6 and 8 Persian dilators. An 8 Persian all-purpose drainage catheter was placed. The catheter was left in place, secured to skin with suture, and connected to wall suction with resolution of the pneumothorax. Complication: None Estimated Blood Loss: None Impression: CT-guided pigtail left chest tube placement. Signed: Alycia Gonsales MD Report Verified Date/Time: 09/11/2018 19:09:45 Reading Location: [facility] [address] [place] [address] Body Reading Room Electronically signed by: ALYCIA GONSALES M.D. on 019 07:09 PM PT/[id number] 12:37:00* Test Item Value Reference Range Interpretation [...] once labs resulted to coordinate placement. PROTHROMBIN TIME/OQR0758-02-60 12:36:00* Test Item Value Reference Range Interpretation [...] mechanical heart valves.RAD, CHEST, 1 VIEW, NON [id number] 09:42:00 Reason for exam:->pneumothoraxShould this be performed [...] Report Verified Date/Time: 09/11/2018 09:42:59 Reading Location: [facility] Radiology Reading Room , CHEST, WITHOUT [id number] 06:31:00FINAL REPORT EXAM: CT of the chest, [...] Rubi Dumont MDReport Verified Date/Time: 2018 06:31:23 [id number] 06:03:00* Test Item Value Reference Range Interpretation Comments PHOSPHORUS (BEAKER) (test code = 604) 4.4 mg/dL 2.3-4.7 [id number] 06:03:00* Test Item Value Reference Range Interpretation Comments MAGNESIUM (BEAKER) (test code = 627) 2.0 mg/dL 1.6-2.6 BASIC METABOLIC [id number] 06:03:00* Test Item Value Reference Range Interpretation [...] DIALYSIS PATIENTS. CBC W/PLT COUNT & AUTO [id number] 05:04:00* Test Item Value Reference Range Interpretation [...] % 0-1 RAD, CHEST, 1 VIEW, NON [id number] 15:19:00Reason for exam:-> pneumothoraxShould this be performed at the bedside?->YesFINAL REPORT RAD, CHEST, 1 VIEW, NON DEPT CLINICAL INDICATION: pneumothorax COMPARISON: Radiograph six hours prior, 09/10/2018 TECHNIQUE: Frontal view of the chest FINDINGS/IMPRESSION: Unchanged left-sided chest tube. Interval decrease in size of left pneumothorax. No other significant interval change. Signed: Maribeth Crooks Verified Date/Time: 09/10/2018 15:19:46 Reading Location: [address] Consult Reading Room EN, [id number] 13:58:00* Test Item Value Reference Range Interpretation Comments TEST URINE (BEAKER) (test code = 583) Negative RAD, CHEST, 1 VIEW, NON [id number] 08:29:00Reason for exam:->pneumothorax FINAL REPORT RAD, CHEST, [...] Maribeth Crooks Verified Date/Time: 08:29:21 Reading Location: [facility] Radiology Reading Room Electr onically signed by: MARIBETH CROOKS MD on 09/10/2018 08:29 AM [id number] 03:34:00* Test Item Value Reference Range Interpretation Comments PHOSPHORUS (BEAKER) (test code = 604) 5.0 mg/dL 2.3-4.7 H [id number] 03:34:00* Test Item Value Reference Range Interpretation Comments MAGNESIUM (BEAKER) (test code = 627) 2.0 mg/dL 1.6-2.6 BASIC METABOLIC [id number] 03:34:00* Test Item Value Reference Range Interpretation [...] Specimen slightly ictericCBC W/PLT COUNT & AUTO [id number] 03:15:00 * Test Item Value Reference Range [...] % 0-1 RAD, CHEST, 1 VIEW, NON [id number] 13:15:00Reason for exam:->evaluate pneumoCT placed back on suction after previous cxrShould this be performed at the bedside?->YesFINAL REPORT AP chest HISTORY: Pneumothorax. COMPARISON: 09/09/2018. IMPRESSION: Left thoracostomy tube. Small left apical pneumothorax, decreased in size. Right lung clear. Stable cardiac silhouette. Signed: Pauline Foster MDReport Verified Date/Time: 09/09/2018 13:15:52 Reading Location: [facility] Mammo Reading Room , CHEST, 1 VIEW, NON DEPT 2018-09-09 13:14:00Reason for exam:->pneumothorax s/p chest tubeShould this be performed at the bedside?->YesFINAL REPORT AP chest HISTORY: Pneumothorax. Chest tube. COMPARISON: None. IMPRESSION: Left thoracostomy tube. Small left apical pneumothorax. Right lung clear. Heart size normal. Signed: Pauline Foster MDReport Verified Date/Time: 09/09/2018 13:14:48 Reading Location: [facility] Reading Room [id number] 04:07:00* Test Item Value Reference Range Interpretation Comments PHOSPHORUS (BEAKER) (test code = 604) 3.2 mg/dL 2.3-4.7 [id number] 04:07:00* Test Item Value Reference Range Interpretation Comments MAGNESIUM (BEAKER) (test code = 627) 1.8 mg/dL 1.6-2.6 BASIC METABOLIC [id number] 04:07:00* Test Item Value Reference Range Interpretation [...] DIALYSIS PATIENTS. CBC W/PLT COUNT & AUTO [id number] 03:45:00* Test Item Value Reference Range Interpretation [...] 0 % 0-1 CHEST SINGLE (PORTABLE)2018-09-09 01:50:00 [facility] [address] [id number] Patient Name: GORDO SERRANO MR #: [id number] : 1995 Age/Sex: 22/F Req #: [id number] Adm Physician: Ordered by: JAYE NORIEGA MD Report #: [id number] Location: ER Room/Bed: Procedure: DX/CHEST SINGLE (PORTABLE) [...] 09/09/18152 COPY TO: JAYE NORIEGA MD Sodium Flivw7864-29-28 01:34:00 * Test Item Value Reference Range Interpretation Comments Sodium Level (test code = 2951-2) 139 136-145 [facility] Tuefk0920-79-20 01:34:00* Test Item Value Reference Range Interpretation Comments Potassium Level (test code = 2823-3) 3.6 3.5-5.1 [facility] HospitalChloride Ihbkf7097-14-94 01:34:00* Test Item Value Reference Range Interpretation Comments Chloride Level (test code = 2075-0) 104 98-107 [facility] HospitalCarbon Dioxide Mnjrb6798-03-12 01:34:00* Test Item Value Reference Range Interpretation Comments Carbon Dioxide Level (test code = 2028-9) 25 22-29 [facility] HospitalAnion Vno2652-24-96 01:34:00* Test Item Value Reference Range Interpretation Comments Anion Gap (test code = 53854-7) 13.6 8-16 [facility] HospitalBlood Urea Hqtldfhn5523-21-14 01:34:00* Test Item Value Reference Range Interpretation Comments Blood Urea Nitrogen (test code = 3094-0) 7 7-26 [facility] HospitalCreatinine2019-07-24 01:34:00* Test Item Value Reference Range Interpretation Comments Creatinine (test code = 2160-0) 0.74 0.57-1.11 [facility] HospitalBUN/Creatinine Rsbdg6684-00-70 01:34:00* Test Item Value Reference Range Interpretation Comments BUN/Creatinine Ratio (test code = 3097-3) 9 6-25 [facility] HospitalEstimat Glomerular Filtration Rate 2018-09-09 01:34:00* Test Item Value Reference Range Interpretation Comments Estimat Glomerular Filtration Rate (test code = 201641709) > 60 >60 Ranges were taken from the National Kidney Disease Education Program and the [facility] literature.Reference ranges:60 or greater: Mrorns97-63 ( for 3 consecutive months): Chronic kidney disease 15 or less: Kidney failureCuero Regional HospitalGlucose Hrfkq5602-03-88 01:34:00* Test Item Value Reference Range Interpretation Comments Glucose Level (test code = IJA1023) 121 74-118 H [facility] HospitalCalcium Cgudn5452-99-60 01:34:00* Test Item Value Reference Range Interpretation Comments Calcium Level (test code = 19506-3) 9.7 8.4-10.2 [facility] HospitalTotal Ceyvuxryv2270-03-13 01:34:00* Test Item Value Reference Range Interpretation Comments Total Bilirubin (test code = 1975-2) 0.8 0.2-1.2 [facility] HospitalAspartate Amino Transf (AST/SGOT) 2018-09-09 01:34:00* Test Item Value Reference Range Interpretation Comments Aspartate Amino Transf (AST/SGOT) (test code = Aspartate Amino Transf (AST/SGOT)) 15 5-34 [facility] HospitalAlanine Aminotransferase (ALT/SGPT) 2018-09-09 01:34:00* Test Item Value Reference Range Interpretation Comments Alanine Aminotransferase (ALT/SGPT) (test code = 1742-6) 14 0-55 [facility] HospitalTotal Yxuvijb6571-38-72 01:34:00* Test Item Value Reference Range Interpretation Comments Total Protein (test code = 2885-2) 7.7 6.5-8.1 [facility] HospitalAlbumin2019-07-24 01:34:00* Test Item Value Reference Range Interpretation Comments Albumin (test code = 1751-7) 4.4 3.5-5.0 [facility] HospitalGlobulin2019-07-24 01:34:00* Test Item Value Reference Range Interpretation Comments Globulin (test code = 88452-5) 3.3 2.3-3.5 [facility] HospitalAlbumin/Globulin Nkyqa5292-73-15 01:34:00 * Test Item Value Reference Range Interpretation Comments Albumin/Globulin Ratio (test code = 1759-0) 1.3 0.8-2.0 [facility] HospitalAlkaline Jualecwylen4926-59-59 01:34:00* Test Item Value Reference Range Interpretation Comments Alkaline Phosphatase (test code = 6768-6) 58 40-150 [facility] HospitalCHEST SINGLE ([facility]ABLE)2018-09-09 01:20:00 [place] [address] Patient Name: GORDO SERRANO MR #: [id number] : 1995 Age/Sex: 22/F Req #: [id number] Adm Physician: Ordered by: JAYE NORIEGA MD Report #: [id number] Location: ER Room/Bed: Procedure: [id number] 0009 DX/CHEST [...] COPY TO: JAYE NORIEGA MD White Blood Wdmni3312-13-65 01:06:00* Test Item Value Reference Range Interpretation Comments White Blood Count (test code = 6690-2) 6.22 4.8-10.8 [facility] Blood Vuugz2097-78-81 01:06:00* Test Item Value Reference Range Interpretation Comments Red Blood Count (test code = 789-8) 4.69 3.6-5.1 [facility] HospitalHemoglobin2019-07-24 01:06:00* Test Item Value Reference Range Interpretation Comments Hemoglobin (test code = 41070-5) 13.2 12.0-16.0 [facility] HospitalHematocrit2019-07-24 01:06:00* Test Item Value Reference Range Interpretation Comments Hematocrit (test code = 4544-3) 40.4 34.2-44.1 [facility] HospitalMean Corpuscular Xfblnf9240-21-48 01:06:00* Test Item Value Reference Range Interpretation Comments Mean Corpuscular Volume (test code = 787-2) 86.1 81-99 [facility] HospitalMean Corpuscular Yxcokwvnah3012-53-13 01:06:00* Test Item Value Reference Range Interpretation Comments Mean Corpuscular Hemoglobin (test code = 785-6) 28.1 28-32 [facility] HospitalMean Corpuscular Hemoglobin Concent 2018-09-09 01:06:00* Test Item Value Reference Range Interpretation Comments Mean Corpuscular Hemoglobin Concent (test code = 786-4) 32.7 31-35 [facility] HospitalRed Cell Distribution Gooty2513-26-52 01:06:00* Test Item Value Reference Range Interpretation Comments Red Cell Distribution Width (test code = 63768-0) 13.4 11.7 -14.4 [facility] HospitalPlatelet Rxqdf7207-77-41 01:06:00* Test Item Value Reference Range Interpretation Comments Platelet Count (test code = 777-3) 303 140-360 [facility] HospitalNeutrophils (%) (Auto)2018-09-09 01:06:00 * Test Item Value Reference Range Interpretation Comments Neutrophils (%) (Auto) (test code = 68202-0) 51.3 38.7-80.0 [facility] HospitalLymphocytes (%) (Auto)2018-09-09 01:06:00 * Test Item Value Reference Range Interpretation Comments Lymphocytes (%) (Auto) (test code = 736-9) 38.9 18.0-39.1 [facility] HospitalMonocytes (%) (Auto)2018-09-09 01:06:00* Test Item Value Reference Range Interpretation Comments Monocytes (%) (Auto) (test code = 5905-5) 8.0 4.4-11.3 [facility] HospitalEosinophils (%) (Auto)2018-09-09 01:06:00 * Test Item Value Reference Range Interpretation Comments Eosinophils (%) (Auto) (test code = 713-8) 1.0 0.0-6.0 [facility] HospitalBasophils (%) (Auto)2018-09-09 01:06:00* Test Item Value Reference Range Interpretation Comments Basophils (%) (Auto) (test code = 706-2) 0.5 0.0-1.0 [facility] HospitalIM GRANULOCYTES %2018-09-09 01:06:00* Test Item Value Reference Range Interpretation Comments IM GRANULOCYTES % (test code = IM GRANULOCYTES %) 0.3 0.0- 1.0 [facility] HospitalNeutrophils # (Auto)2018-09-09 01:06:00* Test Item Value Reference Range Interpretation Comments Neutrophils # (Auto) (test code = 751-8) 3.2 2.1-6.9 [facility] HospitalLymphocytes # (Auto)2018-09-09 01:06:00* Test Item Value Reference Range Interpretation Comments Lymphocytes # (Auto) (test code = 63082-5) 2.4 1.0-3.2 [facility] HospitalMonocytes # (Auto)2018-09-09 01:06:00* Test Item Value Reference Range Interpretation Comments Monocytes # (Auto) (test code = 742-7) 0.5 0.2-0.8 [facility] HospitalEosinophils # (Auto)2018-09-09 01:06:00* Test Item Value Reference Range Interpretation Comments Eosinophils # (Auto) (test code = 711-2) 0.1 0.0-0.4 [facility] HospitalBasophils # (Auto)2018-09-09 01:06:00* Test Item Value Reference Range Interpretation Comments Basophils # (Auto) (test code = 704-7) 0.0 0.0-0.1 [facility] HospitalAbsolute Immature Granulocyte (auto 2018-09-09 01:06:00* Test Item Value Reference Range Interpretation Comments Absolute Immature Granulocyte (auto (adali t code = Absolute Immature Granulocyte (auto) 0.02 0-0.1 [facility] HospitalCHE[facility] SINGLE ([facility]ABLE)2018-09-09 00:36:00 [place] [address] Patient Name: GORDO SERRANO MR #: [id number] : 1995 Age/Sex: 22/F Req #: [id number] Adm Physician: Ordered by: JAYE NORIEGA MD Report #: [id number] Location: ER Room/Bed: Procedure: 072 4-0008 DX/CHEST SINGLE (PORTABLE) Exam Date: 09/09/18 Exam Time: 21 REPORT STATUS: Si gned EXAMINATION: CHEST SINGLE (PORTABLE) INDICATION: post needle decompression [id number] COMPARISON: 09/08/2018 FINDINGS: AP view See [...] COPY TO: JAYE NORIEGA MD CHEST 2 XUGLM7079-11-82 23:55:00 [place] [address] Patient Name: GORDO SERRANO MR #: [id number] : 1995 Age/Sex: 22/F Req #: [id number] Adm Physician: Ordered by: JAYE NORIEGA MD Report #: [id number] Location: ER Room/Bed: Procedure: 072 3-0073 DX/CHEST 2 VIEWS Exam Date: 09/08/18 Exam Khanh e: 2340 REPORT STATUS: Signed EX AMINATION: CHEST 2 VIEWS INDICATION: CHEST/BACK PAIN [id number] 2340 COMPARISON: None FINDINGS: PA and [...] ically Signed By: EDISON GILL MD on 09/08/183 Transcribed By: ALEXANDRIA on 09/08/183 COPY TO: JAYE NORIEGA MD
--- NOTE | 2019-11-14 18:33 | NUR ---
spoke with dr keller re: Dr. Mcallister out of town, Dr. Keller informed this nurse that Dr. Mcallister is aware of patient no further orders noted
--- NOTE | 2019-11-14 18:40 | Diagnostic Imaging Report ---
EXAMINATION: CHEST SINGLE (PORTABLE) INDICATION: pneumothorax COMPARISON: Chest radiograph 11-14-2019 at 6:50 AM. FINDINGS: TUBES and LINES: Left-sided chest tube in unchanged position. LUNGS: Lungs are well inflated. There is no evidence of pneumonia or pulmonary edema. PLEURA: No pleural effusion. Interval decrease in size of small left-sided pneumothorax, particularly laterally and at the base; left apical component persists. HEART AND MEDIASTINUM: The cardiomediastinal silhouette is unremarkable. BONES AND SOFT TISSUES: No acute osseous abnormality. UPPER ABDOMEN: No free air under the diaphragm. IMPRESSION: Interval decrease in size of left-sided pneumothorax. Signed by: Dr. Cabrera Mackay MD on 11/14/2019 6:37 PM
--- NOTE | 2019-11-14 18:50 | NUR ---
WALKING ROUNDS PERFORMED, RECEIVED PT LAYING SEMI FOWLERS IN BED, AAOX3, RR EVEN AND NON-LABORED, ON ROOM AIR. NO S/SX OF DISTRESS NOTED. CHEST TUBE TO (L) LATERAL CHEST CONNECTED TO 20 SUCTION. LEFT PT LAYING SEMI FOWLERS IN BED, BED IN LOW LOCKED POSITION, SIDE RAILS UPX2, CALL LIGHT AND PHONE WITHIN REACH.
--- NOTE | 2019-11-14 21:04 | Consultation ---
DATE OF CONSULTATION: 11/14/2019 REASON FOR CONSULT: Recurrent left pneumothorax; requested by Dr. Luke Keller. HISTORY OF PRESENT ILLNESS: I saw and evaluated this patient on November 14, 2019. She is a 23-year-old lady with a history of previous left pneumothorax, who developed a recurrent spontaneous left pneumothorax. About one year ago, she had a previous pneumothorax that was treated with a left chest tube and thoracoscopic bleb resection at [facility]. She was well until two days ago when she experienced recurrent chest pain. Chest x-ray showed nearly complete collapse of the left lung. A percutaneous chest tube was inserted. The lung re-expanded. This morning, when the Pleur-evac was taken off suction, the pneumothorax recurred. The Pleur-evac was reconnected to suction and the lung has re-expanded with a small pneumothorax. The Pleur-evac has a small air leak at present. Chest pain develops when the pneumothorax occurs. The lungs on chest x-ray are somewhat hyperexpannded. The right lung has a bleb on CT without pneumothorax. She does not smoke. Her sister is a nurse and worked at [employer] [facility] [employer]. Her sister apparently tested positive for tuberculosis at one point. No fevers or chills. PAST SURGICAL HISTORY: Positive for video-assisted thoracoscopy as noted above. She had a removal of a cyst in her neck. PAST MEDICAL HISTORY: Positive for mild scoliosis and pneumothorax. SOCIAL HISTORY: Negative for smoking. She drinks occasional wine. No illicit drugs. No marijuana. FAMILY HISTORY: Positive as above for exposure to tuberculosis. ALLERGIES: NONE KNOWN. MEDICATIONS AT HOME: None. REVIEW OF SYSTEMS: GENERAL: Negative for fatigue or malaise. NEUROLOGIC: Negative for focal weakness. EXTREMITIES: No dysarthria. HEENT: Negative for decreased vision or decreased hearing. CARDIAC: Negative for angina or palpitation. PULMONARY: Positive for chest pain as above. Positive for history of pneumothorax. No wheezing. GI: No constipation or diarrhea. : Negative for hematuria or dysuria. ENDOCRINE: Negative for polyuria, polydipsia. VASCULAR: Negative for claudication. SKIN: Negative for rashes or itching. HEMATOLOGIC: Negative for clotting or bleeding. INFECTIOUS: Negative for fevers or sweating. PSYCHIATRIC: Negative for depression or anxiety. PHYSICAL EXAMINATION: GENERAL: Well-developed, well-nourished young lady, sitting up in bed with a chest tube in place on the left side. VITAL SIGNS: Blood pressure 110/70, pulse 80 and regular, respirations 16 and unlabored. NECK: Supple and nontender. No JVD. CARDIAC: Shows a regular rate and rhythm. Normal S1 and S2. No S3 or S4. LUNGS: Full breath sounds. Pleur-evac has a small air leak. The Pleur-evac is on suction. ABDOMEN: Benign. Good bowel sounds. BACK: No CVA tenderness. No muscular spasm. EXTREMITIES: No cyanosis, clubbing, or edema. SKIN: No rashes or nonhealing ulcers. MUSCULOSKELETAL: Full range of motion at all joints. No joint swelling. NEUROLOGIC: Cranial nerves 2 through 12 intact. Sensation intact to light touch and pinprick bilaterally. LABORATORY DATA: White count 4.6, hemoglobin 12.5, hematocrit 37.8, platelet count 236,000. Sodium 140, potassium 4.1, BUN 9, creatinine 0.75. Liver function tests are normal. IMAGING DATA: Chest x-ray and CT scan are reviewed. There was a large pneumothorax on admission, but this has resolved with suction. This morning, when the chest tube was taken off suction, the pneumothorax recurred. Presently, the lung is nearly completely inflated with the chest tube on suction. No pulmonary lesions are identified. IMPRESSION: Recurrent left pneumothorax after video-assisted thoracoscopy last year. Presently, the lung expanded with the chest tube on suction. I would continue the chest tube to suction for now. She may require repeat intervention. Thank you very much for asking me to see this nice young lady. We will follow. MD BOBBY Borja/TELLY /[id number] PEDRO
[2019-11-15] VITALS (7 sets, daily range): BP systolic 114–127; BP diastolic 78–91
[2019-11-15] MEDS: MORPHINE SULFATE INJ 4 MG/ML INJ 1ML IV PRN ×4 (01:23→22:41)
[2019-11-15] MEDS: ONDANSETRON HCL INJ 2MG/ML 2ML 2 MG/ML VIAL IV PRN ×3 (01:23→22:24)
--- NOTE | 2019-11-15 07:09 | Diagnostic Imaging Report ---
EXAMINATION: CHEST 2 VIEWS INDICATION: ^left pneumothoprax ^[id number] ^[id number] COMPARISON: 11/14/2019 at 1815 hours FINDINGS: PA and lateral views TUBES and LINES: Left chest tube in unchanged position. LUNGS: Lungs are well inflated. There is no evidence of pneumonia or pulmonary edema. PLEURA: Unchanged left apical pneumothorax with air gap of 3.2 cm. HEART AND MEDIASTINUM: The cardiomediastinal silhouette is unremarkable. BONES AND SOFT TISSUES: No acute osseous lesion. Soft tissues are unremarkable. UPPER ABDOMEN: No free air under the diaphragm. IMPRESSION: Unchanged left apical pneumothorax with air gap of approximately 3.2 cm when compared to prior x-ray. Signed by: Dr. Edison Lozano MD on 11/15/2019 7:06 AM
[2019-11-15] MEDS: NORETHINDRONE E ESTRADIOL IRON PO SCH (09:00)
[2019-11-15] MEDS: MULTIVITAMINS/MINERALS TAB PO SCH (09:16)
--- NOTE | 2019-11-15 13:33 | Progress Note ---
DATE: SUBJECTIVE: The patient is seen by Thoracic Surgery last night. Chest tube was connected back to suction yesterday. She still has some residual pneumothorax this morning on chest x-ray. PHYSICAL EXAMINATION: VITAL SIGNS: The blood pressure is 118/83 and the pulse is 94. The respiratory rate is 20. Temperature is 93.4. Saturation is 99%. HEENT: Shows no facial swelling or erythema. LYMPHATIC: Shows no submandibular, cervical, or supraclavicular adenopathy. CARDIAC: Reveals a regular rate and rhythm with normal S1 and S2. LUNGS: Auscultation of lungs reveals rhonchorous breath sounds bilaterally. There is no wheezing. There is a left-sided chest tube. There is still some air leak. ABDOMEN: Soft and nontender. There is no rebound or guarding. EXTREMITIES: Show no leg edema or calf tenderness. IMPRESSION: 1. Recurrent left-sided pneumothorax. 2. Small apical bleb on the right lung seen on CT scan. 3. Mild scoliosis. PLAN: 1. Continue chest tube to suction. 2. Repeat two-view chest x-ray tomorrow morning. 3. Further management depending on the results of x-ray tomorrow. Yusuf Keller MD LM/TELLY /[id number]
--- NOTE | 2019-11-15 18:02 | NUR ---
Dr Dixon here with patient , has done assessment, re in forced the chest tube dressing, patient not in any distress, keep monitoring
--- NOTE | 2019-11-15 19:35 | NUR ---
bedside shift report received from day rn. pt is alert and oriented x3. Respirations are regular and unlabored. Tele on. left ct intact to low suction. pt voiding per bathroom. Call light within reach. Bed in low position.
--- NOTE | 2019-11-15 19:49 | Progress Note ---
DATE: 11/15/2019 REASON FOR PROGRESS NOTE: Recurrent left pneumothorax; requested by Dr. Luke Keller. Jointer Machine is Dr. Stanford Haley. SUBJECTIVE: The patient is resting comfortably in bed. Chest tube on suction with a small air leak. REVIEW OF SYSTEMS: No chest pain, dyspnea, fever, abdominal pain, or neurologic problems. PHYSICAL EXAMINATION: VITAL SIGNS: Blood pressure 115/70, pulse 85 and regular, respirations 16 and unlabored. NECK: Supple and nontender. No JVD. CARDIAC: Regular rate and rhythm. Normal S1 and S2. No rub or murmur. LUNGS: Clear breath sounds. The chest tube is on suction. There is a small air leak. CHEST WALL: Two small incisions along the lateral aspect of the breast and one more posteriorly. These are the old thoracoscopic incisions. ABDOMEN: Globoid, benign. Good bowel sounds. No hepatosplenomegaly. EXTREMITIES: No cyanosis, clubbing, or edema. LABORATORIES AND IMAGING: Chest x-ray is reviewed and shows a recurrent pneumothorax with the apex of the lung about 3 cm from the chest wall. The remainder of the lung is well expanded. The CT scan is reviewed and there is also a bleb on the right side. IMPRESSION: I discussed surgical intervention. The patient is interested in being transferred to the [facility] where she got a previous surgery. We will discuss with Dr. Haley and Dr. Keller. MD CHARLES BorjaL/MODL /[id number]
--- NOTE | 2019-11-15 22:30 | Progress Note ---
DATE: 11/15/2019 SUBJECTIVE: No new complaints. OBJECTIVE: VITAL SIGNS: Temperature 98.2, pulse 91, respiratory rate 20, and blood pressure 114/91. GENERAL: No acute distress. SKIN: No rash. LUNGS: Clear. HEART: Regular rate and rhythm. Normal S1, S2. GI: Abdomen is soft, nondistended. NEUROLOGIC: Alert and oriented x3. PSYCHIATRIC: No hallucination. LABORATORY DATA: Chest x-ray shows unchanged left apical pneumothorax with air gap of approximately 3.2 cm. ASSESSMENT AND PLAN: 1. Recurrent spontaneous left pneumothorax. We will continue chest tube. We will repeat chest x-ray in the morning, both the government affairs researcher and thoracic surgeons are following as well. 2. Gastrointestinal and deep venous thrombosis prophylaxis, low risk, not indicated. MD WANDER Vázquez/TELLY /[id number]
[2019-11-16] VITALS (7 sets, daily range): BP systolic 95–116; BP diastolic 69–81
--- NOTE | 2019-11-16 03:15 | History and Physical ---
PRIMARY CARE DOCTOR: Dr. Jessica Lara CHIEF COMPLAINT: This is a 23-year-old woman, who had spontaneous pneumothorax last year, eventually required VATS. The patient did well until yesterday morning. The patient began to have chest pain. The pain is worse when she takes a deep breath. Finally, last night, she came to the emergency room and was found to have a large pneumothorax. Chest tube was subsequently placed by Dr. Keller earlier today. When chest tube was put on water-seal, the patient developed pain again. Therefore, suction has to be restarted. The patient denies any travel. Otherwise, no fever. No nausea, vomiting. No cough. PAST MEDICAL SURGICAL HISTORY: Spontaneous pneumothorax. MEDICATIONS: Please see medication reconciliation form. ALLERGIES: NONE. SOCIAL HISTORY: Does not smoke. FAMILY HISTORY: No pneumothorax. REVIEW OF SYSTEMS: A 10-point review of system obtained and nothing else is significant other than what is stated in the HPI. PHYSICAL EXAMINATION: VITAL SIGNS: Temperature 98, pulse 78, respiratory rate 18, blood pressure 119/86. GENERAL: No acute distress. SKIN: No rash. HEENT: Oropharynx is clear. Anicteric. LUNGS: Clear. HEART: Regular rate and rhythm. Normal S1, S2. ABDOMEN: Soft, nondistended. NEUROLOGIC: Alert and oriented x3. Cranial nerves 2-12 intact. PSYCHIATRIC: No hallucination. MUSCULOSKELETAL: Painless range of motion. LABORATORY DATA: White count 5, hemoglobin 13, platelet count 236. Creatinine 0.8. ASSESSMENT/PLAN: 1. Left-sided large spontaneous pneumothorax. We will continue chest tube to suction. Cardiothoracic surgeon has been consulted as well. 2. GI and DVT prophylaxis. Low risk, not indicated. I have updated her primary care doctor about this hospitalization. Yiching MD WANDER Travis/TELLY /[id number] cc: [facility]
[2019-11-16] MEDS: MORPHINE SULFATE INJ 4 MG/ML INJ 1ML IV PRN ×2 (08:50→22:16)
[2019-11-16] MEDS: MULTIVITAMINS/MINERALS TAB PO SCH (08:57)
[2019-11-16] MEDS: NORETHINDRONE E ESTRADIOL IRON PO SCH (08:57)
--- NOTE | 2019-11-16 08:57 | Diagnostic Imaging Report ---
EXAM: CHEST 2 VIEWS DATE: 11/16/2019 6:38 AM INDICATION: Left pneumothorax COMPARISON: 11/15/2019 FINDINGS: There is a stable left apical pneumothorax with 3.1 cm of pleural separation, previously 3.2 cm. There is no evidence for focal consolidation or significant pleural effusion. The cardiac mediastinal silhouette is stable in appearance. No acute osseous abnormality identified. IMPRESSION: Stable left apical pneumothorax. Signed by: Dr. Waqas Green MD on 11/16/2019 8:54 AM
[2019-11-16] MEDS: HYDROCODONE/APAP 5MG-325MG TAB PO PRN (14:30)
--- NOTE | 2019-11-16 17:26 | Progress Note ---
DATE: SUBJECTIVE: The patient still had some pneumothorax on x-ray this morning. She is sitting upright and has a small air leak on her chest tube. PHYSICAL EXAMINATION: VITAL SIGNS: Blood pressure is 101/78, pulse is 74, and saturation is 100%. HEENT: Shows no facial swelling or erythema. LYMPHATIC: Shows no submandibular, cervical, or supraclavicular adenopathy. CARDIAC: Reveals regular rate and rhythm with normal S1 and S2. LUNGS: Auscultation of lungs reveals decreased breath sounds at the bases. There is no wheezing. ABDOMEN: Soft and nontender. There is no rebound or guarding. EXTREMITIES: Show no leg edema or calf tenderness. There is no cyanosis or clubbing. SKIN: Shows no rashes. NEUROLOGICAL: Shows no focal abnormalities. IMPRESSION: 1. Left-sided pneumothorax. 2. Mild scoliosis. 3. Small apical bleb in the right lung, seen on CT scan. PLAN: 1. Continue chest tube to suction. 2. Repeat two-view chest x-ray tomorrow morning. 3. If the patient still has persistent pneumothorax, we will transfer back to [facility]. MD KATIE Moss/TELLY /[id number]
--- NOTE | 2019-11-16 19:40 | NUR ---
BEDSIDE SHIFT REPORT RECEIVED FROM DAY RN. PT IS A&O X3.CT TO SUCTION.AIR LEAK NOTED SLIGHT WHEN PT LEAN FORWARD. PHYSICIAN AWARE. TELE ON. PT UP TO BATHROOM TO VOID. CT DRESSING DRY AND INTACT. RESPIRATIONS ARE EVEN AND UNLABORED. 20 G SL RT FA. SITE HEALTHY. CALL LIGHT WITHIN REACH. BED IN LOW POSITION.
--- NOTE | 2019-11-16 22:18 | Progress Note ---
DATE: 11/16/2019 SUBJECTIVE: No new complaints. OBJECTIVE: VITAL SIGNS: Temperature 98.3, pulse 74, respiratory rate 18, and blood pressure 101/78. GENERAL: No acute distress. SKIN: No rash. LUNGS: Clear. HEART: Regular rate and rhythm. Normal S1 and S2. GI: Abdomen is soft and nondistended. NEUROLOGIC: Alert and oriented x3. PSYCHIATRIC: No hallucination. LABORATORY: Chest x-ray is unchanged. ASSESSMENT AND PLAN: 1. Recurrent spontaneous left pneumothorax. We will continue chest tube with suctioning. I have discussed with Dr. Keller. We will repeat chest x-ray tomorrow. If it continues to show a pneumothorax, we will transfer the patient to the [facility] for surgical intervention. Of note, the patient also has a bleb on the right side of her lung. 2. Gastrointestinal and deep venous thrombosis prophylaxis. Low risk, not indicated. MD WANDER Vázquez/TELLY /[id number]
[2019-11-17] VITALS: BP 116/82
[2019-11-17 04:00] VITALS: BP 106/60
--- NOTE | 2019-11-17 07:00 | NUR ---
BEDSIDE SHIFT REPORT RECEIVED PT IN STABLE CONDITION, DENIES PAIN AT THIS TIME, UPDATED ON POC VOCIED UNDERSTANDING, R AC 20G NO SS OF INFILTRATION NOTED, L CHEST TUBE INTACT CONNECTED TO WALL SUCTION, NO OTHER CO VCIED CALL LIGHT IN REACH WILL CONTINUE TO MONITOR
--- NOTE | 2019-11-17 07:15 | NUR ---
DOWN TO XRAY,
--- NOTE | 2019-11-17 07:20 | NUR ---
BACK TO CHEST TUBE RECONNECTED TO WALL SUCTION, NO OTHER NEEDS AT THIS TIME.
--- NOTE | 2019-11-17 07:31 | Diagnostic Imaging Report ---
EXAMINATION: CHEST 2 VIEWS INDICATION: Pneumothorax COMPARISON: Chest x-ray 11/16/2019 FINDINGS: TUBES and LINES: Unchanged left chest percutaneous pleural drain in place slightly kinked at the chest wall entrance.. LUNGS: Normal lung volumes. Lungs are clear. No consolidations. PLEURA: Unchanged left pneumothorax. No pleural effusion. HEART AND MEDIASTINUM: The cardiomediastinal silhouette is unremarkable. BONES AND SOFT TISSUES: No acute osseous lesion. Soft tissues are unremarkable. UPPER ABDOMEN: No free air under the diaphragm. IMPRESSION: Unchanged left pneumothorax with left chest percutaneous pleural drain in place. Signed by: Robbie Panda DO on 11/17/2019 7:28 AM
[2019-11-17 08:18] VITALS: BP 105/76
[2019-11-17] MEDS: MULTIVITAMINS/MINERALS TAB PO SCH (08:39)
[2019-11-17 08:56] VITALS: BP 105/76
--- NOTE | 2019-11-17 10:05 | Progress Note ---
DATE: SUBJECTIVE: The patient still has some pneumothorax on chest x-ray. She still has some air leak. PHYSICAL EXAMINATION: VITAL SIGNS: Blood pressure is 105/76, saturation is 100% and the pulse is 81. HEENT: No facial swelling or erythema. LYMPHATIC: No submandibular, cervical, or supraclavicular adenopathy. CARDIAC: Regular rate and rhythm with normal S1, S2. LUNGS: Auscultation of lungs reveals clear breath sounds bilaterally. There is no wheezing. ABDOMEN: Soft, nontender. There is no rebound or guarding. EXTREMITIES: No leg edema or calf tenderness. There is no cyanosis or clubbing. SKIN: No rashes. NEUROLOGICAL: No focal abnormalities. LABORATORY DATA: BUN to creatinine ratio is 9 to 0.75 and the other electrolytes are within normal limits. White blood cell count is 4.6 and hemoglobin 12.5. The platelet count is 236. IMPRESSION: 1. Left-sided pneumothorax. 2. Mild scoliosis. 3. Small apical bleb on the right side, seen on CT scan. PLAN: 1. Chest tube remains to suction. It is not to reexpanding. Video-assisted thoracoscopy or thoracotomy may be required. 2. The patient is requesting transfer back to [facility]. MD KATIE Moss/TELLY /[id number]
[2019-11-17 12:33] VITALS: BP 116/90
--- NOTE | 2019-11-17 14:14 | NUR ---
tried calling report to [facility], nurse hess to receive report, receiving nurse unable to come to phone at this time, will call back in 30mins.
--- NOTE | 2019-11-17 14:15 | NUR ---
ORDERS REC'D TO TRANSFER PT DOWNTOWN TO [facility] UNDER DR BRIAN WALKER FOR VATS PROCEEDURE CHOICE LETTER SIGNED AND ON CHART MOT INITIATED AND PLACED IN PACKET AT DESK CM [facility] AND SPOKE WITH SUMAYA PH: [phone] FAXED FACE SHEET, H+P AND PROGRESS NOTES TO [phone]; CONFIRMATION REC'D DR WALKER AND DR IVEY DID DOC TO DOC
--- NOTE | 2019-11-17 14:18 | NUR ---
DYLLAN SPOKE WITH CHRISTIANO AT [facility] MOT REC'D [facility] [address] [place] [address] ROOM 1031 ACCEPTEING ADMIN: CHRISTIANO DENNIS XFER COORDINATOR ACCEPTING PHYSICIAN: DR BRIAN WALKER CALL REPORT TO [phone] ROOM 1031 PT NOTIFIED OF ABOVE AND EAGER TO GO
--- NOTE | 2019-11-17 14:50 | NUR ---
report called to phil hess all questions answered, mot brought to housekeeper nanny, awaiting transport
[2019-11-17 17:03] VITALS: BP 118/75
[2019-11-17] MEDS ORDERED: NORETHINDRONE E ESTRADIOL IRON PO SCH (21:00)
--- NOTE | 2019-11-17 23:44 | Discharge Summary ---
PRIMARY CARE DOCTOR: Dr. Jessica Lara. FINAL DIAGNOSIS: Recurrent left-sided spontaneous pneumothorax. SECONDARY DIAGNOSIS: None. CONSULTANTS: 1. Dr. Dixon, thoracic surgeon. 2. Dr. Keller, Pulmonary. PROCEDURES/STUDIES PERFORMED: 1. Chest tube placement. 2. CT of the chest. HISTORY: Per [facility] HOSPITAL COURSE: The patient came in with recurrent left-sided spontaneous pneumothorax. The patient already had surgical repair via VATS last year. Chest tube was inserted. However, her lungs were never able to fully extend. She still has apical pneumothorax. Therefore, surgical intervention was indicated. The patient would like to have the same surgeon, who operated on her last year to do it. Therefore, the patient was transferred to [facility] for further care. The patient was seen and examined today. CONDITION ON DISCHARGE: Inpatient transfer. DISCHARGE MEDICATIONS: Please see medication reconciliation form. I already notified her primary care doctor about this hospitalization. MD WANDER Vázquez/TELLY /[id number] cc: [facility]
== END 2019-11-17 17:23 | disposition short-term general hospital (02) | DRG 201 ==
LOC: ER 19:07 → ERHOLD 23:29 → MED/SURG 11-14 00:30 → INTOOBSV 11-14 10:20 → OBSVTOIN 11-14 10:20
PROVIDERS: ADMIT Internal Medicine; ATTEND Internal Medicine
PROC: 0W9B30Z Drainage of Left Pleural Cavity with Drainage Device, Percutaneous Approach (ICD-10-PCS; principal; 2019-11-14)
DX: J93.83 Other pneumothorax (principal); Z11.59 Encounter for screening for other viral diseases; M41.9 Scoliosis, unspecified; J43.0 Unilateral pulmonary emphysema [MacLeod's syndrome]
CPT/HCPCS: 36415; 71045; 71046; 71250; 80053; 80307; 81025; 82103; 82550; 82553; 82948; 84484; 85025; 93005; 99284; G0378; J2001; J2060; J2270; J2405

== ENCOUNTER 2020-12-18 16:40 | Emergency (ER) | payer OTHER ==
[~2020-12-18] VITALS: Ht 175.3 cm; Wt 59.0 kg
[~2020-12-18 16:40] MED LIST: LARIN 24 FE 11 EACH PO; MULTIVITAMINS1 EAC7 PO
[2020-12-18] MEDS ORDERED: KETOROLAC TROMETHAMINE 60 MG/2 ML VIAL IM ONE (17:00)
[2020-12-18] MEDS ORDERED: ASPIRIN 81 MG CHEW TAB PO ONE (17:00)
[2020-12-18 17:29] LABS: BASOPHILS % 0.6 % (0.0-1.0); EOSINOPHILS # (AUTO) 0.2 (0.0-0.4); EOSINOPHILS % 2.5 % (0.0-6.0); HEMOGLOBIN 14.9 g/dL (12.0-16.0); LYMPHOCYTES # (AUTO) 3.1 (1.0-3.2); MEAN CORPUSCULAR HEMOGLOBIN 30.4 pg (28-32); MEAN CORPUSCULAR HGB CONC 33.1 g/dL (31-35); MEAN CORPUSCULAR VOLUME 91.8 fL (81-99); MONOCYTES # (AUTO) 0.5 (0.2-0.8); MONOCYTES % 7.5 % (4.4-11.3); NEUTROPHILS # (AUTO) 3.3 (2.1-6.9); NEUTROPHILS % 46.1 % (38.7-80.0); PLATELET COUNT 304 x10e3/uL (140-360); RED CELL DISTRIBUTION WIDTH 11.9 % (11.7-14.4)
[2020-12-18 17:40] LABS: ALBUMIN 4.4 g/dL (3.5-5.0); ALBUMIN/GLOBULIN RATIO 1.4 (0.8-2.0); ANION GAP 16.7 mmol/L (8-16); CALCIUM 9.1 mg/dL (8.4-10.2); CREATININE, SERUM 0.74 mg/dL (0.57-1.11); POTASSIUM 3.7 mmol/L (3.5-5.1)
[2020-12-18] MEDS ORDERED: ULTRAM50 MG PO (18:08)
== END 2020-12-18 18:26 | disposition home or self-care (01) ==
LOC: ER 16:42
DX: M54.6 Pain in thoracic spine (principal); Z87.09 Personal history of other diseases of the respiratory system
CPT/HCPCS: 36415; 71046; 80053; 84702; 85025; 99284; J1885